=== PATIENT | female | born 1940 | race African-American/Black ===

== ENCOUNTER 2018-04-23 20:57 | Inpatient (IN) | payer MEDICARE, MEDICAID ==
[2018-04-23] MEDS ORDERED: hydrALAZINE 20 MG/ML VIAL ONE (21:32)
--- NOTE | 2018-04-23 21:49 | RAD ---
SINGLE VIEW OF THE CHEST: Comparison: 11-04-17 History: Weakness and fever. FINDINGS: Single view of the chest shows an enlarged but stable cardiomediastinal silhouette. This exam is slig htly rotated and there is upper mediastinal fullness, likely secondary to the rotation. There is a ch ronic unhealed fracture of the left humerus. Degenerative changes are seen in the spine and shoulders . There is no evidence of consolidation, mass, or pleural effusion. IMPRESSION: No evidence of acute cardiopulmonary disease. POS: [facility]
[2018-04-23 21:59] LABS: Bilirubin Negative (Negative); Blood, Urine Negative (Negative); Clarity CLOUDY (Clear); Glucose, Urine (Dipstick) Negative (Negative); Leukocyte Trace (Negative); Nitrite Negative (Negative); Protein, Urine (Dipstick) 300 mg/dL (Neg-Trace); Specific Gravity, Urine 1.011 (1.002-1.036); Urobilinogen 0.2 mg/dL (0.2-1.0)
[2018-04-23 22:01] LABS: Bacteria/HPF None Seen HPF (None Seen); Hyaline Casts/LPF 7-10 HYALINE CAST LPF (0-3 Hyaline); Pathc Cast-AUWi Flag 2.03 (0-2.49); RBC/HPF 0-3 HPF (0-3)
--- NOTE | 2018-04-23 22:10 | ULT ---
GALLBLADDER ULTRASOUND: History: Epigastric abdominal pain and fever. Technique: Multiplanar grayscale and color doppler images were obtained in a right upper quadrant abd ominal ultrasound. FINDINGS: The liver is normal in echogenicity without focal lesions or intrahepatic ductal dilation. The gallbl adder is normal without stones, sludge, gallbladder wall thickening or pericholecystic fluid. The com mon bile duct is enlarged measuring 8 mm. The visualized portions of the pancreas are unremarkable. The right kidney demonstrates increased ech ogenicity without hydronephrosis or calculus and measures 9.3 cm in length. IMPRESSION: 1. Enlargement of the common bile duct is nonspecific. No obvious gallstones are seen. 2. Echogenic kidney, chronic renal disease. POS: [facility]
[2018-04-23 23:01] LABS: Lipase 20 U/L (8-78)
[2018-04-23 23:02] LABS: CK (CPK) 58 U/L (29-168)
[2018-04-23 23:07] LABS: CKMB 1.4 ng/mL (0-6.6); Troponin I Less than 0.010 ng/mL (< 0.028)
[2018-04-23] MEDS ORDERED: cefTRIAXone\\ROCEPHIN 2 GM VIAL ONE (23:27)
[2018-04-23] MEDS ORDERED: Acetaminophen 325 MG TAB ONE (23:40)
[2018-04-24] MEDS ORDERED: Sodium Chloride 0.9% 1,000 ML IV SCH (00:51)
[2018-04-24] MEDS ORDERED: Ondansetron ODT 4 MG TAB SL PRN (00:51)
[2018-04-24] MEDS ORDERED: Acetaminophen 325 MG TAB PO PRN (00:51)
[2018-04-24] MEDS ORDERED: Ondansetron HCl/PF 4 MG/2 ML Vial IVP PRN (00:51)
[2018-04-24 01:01] VITALS: BMI 18.6
[2018-04-24] MEDS: Sodium Chloride 0.45% 1,000 ML IV SCH ×2 (02:01→16:49)
[2018-04-24] MEDS ORDERED: Colchicine 0.6 MG TAB PO PRN (02:22)
--- NOTE | 2018-04-24 02:46 | HP ---
CODE STATUS: FULL CODE. PRIMARY CARE PHYSICIAN: The patient goes to [facility]. TIME OF EVALUATION: 12:00 a.m. CHIEF COMPLAINT: Generalized weakness, nausea, vomiting. HISTORY OF PRESENT ILLNESS: 77 y/o f pt, hx of htn, gout, came to hospital complaining of nausea, vomiting and diarrhea, The patient reported that the symptoms started today, also associated fever, no clear triggers, no alleviating factors. She was transferred from [place] for that reason.symptoms were reported as moderate to severe. REVIEW OF SYSTEMS: Constitutional: The patient had fever, chills, generalized weakness. Respiratory: No cough, no sputum production or shortness of breath. Cardiovascular: No chest pain, palpitation or shortness of breath. Gastrointestinal: The patient has abdominal pain, nausea, vomiting, and diarrhea. Central nervous system: No dizziness, headache or feeling lightheaded. Genitourinary: No burning on urination. Extremities: No leg swelling. She has chronic, old left humeral fracture. All systems were reviewed and negative except for the findings mentioned above. PAST MEDICAL HISTORY: gout, hypertension. PAST SURGICAL HISTORY: Hysterectomy. PSYCHIATRIC HISTORY: Anxiety. SOCIAL HISTORY: No alcohol, no drugs, no smoking history. FAMILY HISTORY: Father with no problems. Mother with heart problems. KNOWN ALLERGIES: CODEINE, IBUPROFEN, and PENICILLIN. REPORTED MEDICATIONS: Hydrochlorothiazide, lisinopril, amitriptyline, K-Dur, diclofenac, fluticasone, colchicine, omeprazole. PHYSICAL EXAMINATION: VITAL SIGNS: On presentation, blood pressure 205/95 with heart rate of 108, respiratory rate was 25, temperature 100.7, pain 4/10, saturation was 95 on room air. GENERAL APPEARANCE: The patient is alert, oriented, no acute distress. HEENT: Eyes: Normal conjunctivae. Moist oral mucosa. Anicteric. NECK: No JVD. RESPIRATORY: Bilateral air entry. No rales, no wheezing. Symmetric expansion. CARDIOVASCULAR: Normal rate, regular rhythm, no murmurs, no gallop. No edema. ABDOMEN: Soft, tender, normal bowel sounds. MUSCULOSKELETAL: Baseline range of motion and strength. No tenderness. SKIN: Warm and intact. No pallor, no rash, no redness. NEUROLOGIC: Baseline sensory. No evidence of any new focal weakness. Baseline speech. Cranial nerves seem to intact. PSYCHIATRIC: The patient is in a good mood. No anxiety, oriented, optimal judgment. LABORATORY DATA: Reviewed. The patient had a white count 9.6, hemoglobin 10.3 , MCV 87, platelet count 170. Chemistry: Serum potassium 3.8, sodium 143, potassium 4.3, chloride 116, carbon dioxide was 15 with normal anion gap, BUN 26 , GFR greater than 90, creatinine 1.34, the same value from previous admissions and previous records. Glucose 129. LFTs were normal. UA was reviewed, is positive with a white count in urine 4-6. The patient has sinus tachycardia at the rate of 107. ST segment and T waves, no abnormalities. Early repolarization with left ventricular hypertrophy based on diagnosis for any acute pathology. Radiology was reviewed and patient had a chest x-ray showing no evidence of acute cardiopulmonary disease. An abdominal ultrasound showing enlargement of the common bile duct. There is no specific obvious gallstones are seen, echogenic kidney, chronic renal disease. ASSESSMENT AND PLAN: The patient will be placed in the hospital for the following medical problems: 1. Possible acute gastroenteritis, patient had abdominal pain, nausea, vomiting , and diarrhea, also associated with non anion gap metabolic acidosis likely from bicarbonate loss from diarrhea. We will place the patient on antibiotics, we will follow stool cultures, CAT scan is pending. We will monitor, we will follow. 2. Non anion gap metabolic acidosis likely secondary to acute bicarbonate loss from diarrhea. We will treat the underlying condition. 3. Urinary tract infection, UA is positive, we will place the patient on antibiotics. Monitor cultures. Adjust treatment as needed. 4. Hypertensive urgency, no acute symptoms on presentation, reconcile home medications, IV p.r.n. medications for optimal control. 5. Deep venous thrombosis prophylaxis. 6. Hyperglycemia on presentation, will be related to acute distress. 7. History of diabetes, we will monitor, we will treat accordingly. [facility]
[2018-04-24 05:00] LABS: #Lymphocytes 0.4 thou/uL (1.20-3.40); #Monocytes 0.3 thou/uL (0.11-0.59); #Neutrophils 6.5 thou/uL (1.40-6.50); %Basophils 0.1 % (0.0-1.0); %Eosinophils 0.3 % (0.0-10.0); %Lymphocytes 4.9 % (21.0-51.0); %Monocytes 3.7 % (0.0-10.0); %Neutrophils 91.1 % (42.0-75.0); Hemoglobin 9.6 g/dL (12.0-16.0); Mean Corpuscular Hemoglobin 29.5 pg (27.0-31.0); Mean Corpuscular Volume 86.9 fL (78.0-98.0); Mean Platelet Volume 6.7 fL (7.4-10.4); Platelet Count 159 thou/uL (130-400); RBC Distribution Width 12.8 % (11.5-14.5); Red Blood Cell (RBC) Count 3.25 mill/uL (4.20-5.40); White Blood Cell (WBC) Count 7.1 thou/uL (4.8-10.8)
[2018-04-24 05:37] LABS: Anion Gap 15 mmol/L (10-20); BUN (Urea Nitrogen) 24 mg/dL (9.8-20.1); Calc. Creatinine Clearance 27 mL/min (70-130); Calcium 8.9 mg/dL (7.8-10.44); Carbon Dioxide 15 mmol/L (23-31); Chloride 114 mmol/L (98-107); Estimated GFR-MDRD 50; Glucose 110 mg/dL (83-110); Potassium 3.8 mmol/L (3.5-5.1); Sodium 140 mmol/L (136-145)
[2018-04-24] MEDS: metroNIDAZOLE 500 MG in Premix Bag 1 BAG IVPB SCH ×3 (06:34→21:13)
[2018-04-24] MEDS: Mometasone 100 MCG HFA INHALER INH SCH ×2 (06:43→19:19)
[2018-04-24] MEDS: Potassium Chloride 20 MEQ TAB PO SCH (08:28)
[2018-04-24] MEDS: Hydrochlorothiazide 25 MG TAB PO SCH ×2 (08:29→21:43)
[2018-04-24] MEDS: Amitriptyline HCl 25 MG TAB PO SCH ×2 (08:29→21:45)
[2018-04-24] MEDS: Enoxaparin Sodium 30 MG/0.3 ML SYRINGE SC SCH (08:30)
[2018-04-24] MEDS: Lisinopril 20 MG TAB PO SCH (08:30)
--- NOTE | 2018-04-24 09:15 | CT ---
PRELIMINARY REPORT/[facility]/EMERGENTY AFTER-HOURS PROCEDURE CT Abdomen and Pelvis Without Intravenous Contrast CLINICAL HISTORY: 77 years old, female; Pain; Abdominal pain; Generalized TECHNIQUE: Axial computed tomography images of the abdomen and pelvis without intravenous contrast. Coronal reformatted images were created and reviewed. COMPARISON: No relevant prior studies available. FINDINGS: Lung bases: There is respiratory motion artifact of the lung bases. Mediastinum: A moderate hiatal hernia is present. ABDOMEN: Liver: The liver is within normal limits for this noncontrast study. Gallbladder and bile ducts: The gallbladder is normal. There is no evidence of biliary ductal dilatio n. No calcified stones. Pancreas: The pancreas appears normal. No ductal dilation. Spleen: The spleen is normal. Adrenals: The adrenal glands are normal. Kidneys and ureters: The kidneys appear normal. No obstructing stones. No hydronephrosis. Stomach and bowel: Visualized colon is unremarkable on these unenhanced views. No obstruction. No muc osal thickening. PELVIS: Appendix: The appendix is not definitively identified. Bladder: The bladder is mildly distended. No stones. Reproductive: There is a 2.5 cm LEFT adnexal cyst incompletely evaluated with CT. Uterus may be surgi rosana absent. ABDOMEN and PELVIS: Intraperitoneal space: Normal. No free air. No significant fluid collection. Bones/joints: The spine demonstrates moderate degenerative changes at multiple levels. No acute fract ure. No dislocation. Soft tissues: Normal. Vasculature: The vasculature demonstrates diffuse mild atherosclerotic calcification. No abdominal ao rtic aneurysm. Lymph nodes: Normal. No enlarged lymph nodes. IMPRESSION: 1. No acute abdominal pelvic pathology. 2. A moderate hiatal hernia is present. 3. There is a 2.5 cm LEFT adnexal cyst incompletely evaluated with CT. Thank you for allowing us to participate in the care of your patient. Dictated and Authenticated by: Jorge Wilder MD 04/24/2018 4:17 AM Central Time ([place] & [place]) FINAL REPORT CT ABDOMEN AND PELVIS NONCONTRAST PERFORMED ON AN EMERGENCY BASIS: Date: 04/24/18 Time: 0247 hours HISTORY: Flank pain. FINDINGS: Findings agree with the preliminary report by Alecia. No CT evidence of urinary tract calcification. Ur inary bladder distention and diverticula suggest possibility of chronic urinary bladder outlet obstru ction. POS: [facility]
[2018-04-24] MEDS: hydrALAZINE 20 MG/ML VIAL SLOW IVP PRN ×3 (13:47→21:07)
[2018-04-24] MEDS ORDERED: cefTRIAXone\\ROCEPHIN 1 GM in Sodium Chloride 0.9% 100 ML IVPB SCH (23:00)
[2018-04-24] MEDS ORDERED: cefTRIAXone\\ROCEPHIN 1 GM, Admixture Fee 1 EACH in Sodium Chloride 0.9% 100 ML IVPB SCH (23:00)
[2018-04-25] MEDS: Sodium Chloride 0.45% 1,000 ML IV SCH (05:21)
[2018-04-25] MEDS: metroNIDAZOLE 500 MG in Premix Bag 1 BAG IVPB SCH (05:31)
[2018-04-25] MEDS: Mometasone 100 MCG HFA INHALER INH SCH ×2 (06:56→19:19)
[2018-04-25 07:53] LABS: #Lymphocytes 0.6 thou/uL (1.20-3.40); #Monocytes 0.3 thou/uL (0.11-0.59); #Neutrophils 4.3 thou/uL (1.40-6.50); %Eosinophils 0.4 % (0.0-10.0); %Lymphocytes 11.5 % (21.0-51.0); %Monocytes 6.4 % (0.0-10.0); %Neutrophils 81.6 % (42.0-75.0); Hemoglobin 9.8 g/dL (12.0-16.0); Mean Corpuscular HGB CONC 33.9 g/dL (32.0-36.0); Mean Corpuscular Hemoglobin 29.9 pg (27.0-31.0); Mean Platelet Volume 7.1 fL (7.4-10.4); Platelet Count 158 thou/uL (130-400); RBC Distribution Width 12.7 % (11.5-14.5); White Blood Cell (WBC) Count 5.2 thou/uL (4.8-10.8)
[2018-04-25 08:08] LABS: Anion Gap 15 mmol/L (10-20); BUN (Urea Nitrogen) 19 mg/dL (9.8-20.1); Calc. Creatinine Clearance 28 mL/min (70-130); Calcium 8.9 mg/dL (7.8-10.44); Carbon Dioxide 15 mmol/L (23-31); Chloride 112 mmol/L (98-107); Estimated GFR-MDRD 49; Glucose 100 mg/dL (83-110); Magnesium 1.5 mg/dL (1.6-2.6); Potassium 3.5 mmol/L (3.5-5.1); Sodium 138 mmol/L (136-145)
[2018-04-25] MEDS: Potassium Chloride 20 MEQ TAB PO SCH (08:30)
[2018-04-25] MEDS: Amitriptyline HCl 25 MG TAB PO SCH (08:30)
[2018-04-25] MEDS: Hydrochlorothiazide 25 MG TAB PO SCH (08:31)
[2018-04-25] MEDS: Enoxaparin Sodium 30 MG/0.3 ML SYRINGE SC SCH (08:31)
[2018-04-25] MEDS: Lisinopril 20 MG TAB PO SCH (08:31)
[2018-04-25] MEDS ORDERED: Magnesium 2 GM/NS 0.9% 100 ML 2 GM in Premix Bag 1 BAG IVPB SCH (09:15)
[2018-04-25] MEDS ORDERED: Magnesium Sulfate 2 GM, Admixture Fee 1 EACH in Sodium Chloride 0.9% 100 ML IVPB SCH (09:30)
[2018-04-25 15:15] VITALS: TEMP 97.8
[2018-04-25 15:40] VITALS: BP 170/77
== END 2018-04-25 20:28 | disposition home or self-care (01) | DRG 690 ==
LOC: ERS 20:57 → 2NO 23:22
PROVIDERS: ADMIT Hospitalist; ATTEND Hospitalist
DX: N39.0 Urinary tract infection, site not specified (principal); E87.2 Acidosis; K52.9 Noninfective gastroenteritis and colitis, unspecified; I10 Essential (primary) hypertension; M10.9 Gout, unspecified; F41.9 Anxiety disorder, unspecified; R19.7 Diarrhea, unspecified; I16.0 Hypertensive urgency; E11.65 Type 2 diabetes mellitus with hyperglycemia; Z88.0 Allergy status to penicillin
CPT/HCPCS: 36415; 51701; 71045; 74176; 76705; 80048; 82553; 83605; 83690; 83735; 84484; 85025; 87086; 93005; 96365; 96375; A4353; G8978-GP-CI; G8979-GP-CI; G8980-GP-CI; G8987-GO-CI; G8988-GO-CI; G8989-GO-CI; J0360; J0696; J1650; J3475; J7050

== ENCOUNTER 2018-07-14 22:35 | Inpatient (IN) | payer MEDICARE, MEDICAID ==
[2018-07-15 01:40] VITALS: BMI 19.4
[2018-07-15] MEDS ORDERED: Morphine 2 MG/ML SYRINGE SLOW IVP PRN (02:06)
[2018-07-15] MEDS: Acetaminophen 325 MG TAB PO PRN ×2 (04:00→13:50)
[2018-07-15] MEDS ORDERED: Ondansetron ODT 4 MG TAB PO PRN (08:15)
[2018-07-15] MEDS ORDERED: Ondansetron HCl/PF 4 MG/2 ML Vial IVP PRN (08:15)
[2018-07-15] MEDS ORDERED: Milk Of Magnesia 30 ML UDCUP PO PRN (08:15)
[2018-07-15] MEDS ORDERED: Calcium Carbonate 500 MG ChewTAB PO PRN (08:15)
[2018-07-15] MEDS ORDERED: Mag-Al 1200 mg/1200 mg/30 ML UDCUP PO PRN (08:15)
[2018-07-15] MEDS ORDERED: Senokot 8.6 MG TAB PO PRN (08:15)
[2018-07-15] MEDS ORDERED: ALPRAZolam 0.25 MG TAB PO PRN (08:18)
[2018-07-15] MEDS ORDERED: hydrALAZINE 20 MG/ML VIAL SLOW IVP PRN (08:18)
--- NOTE | 2018-07-15 08:35 | HP ---
PRIMARY CARE PHYSICIAN: Kaylee Rodrigues M.D. CHIEF COMPLAINT: Fever and chills of 2 days' duration. HISTORY OF PRESENT ILLNESS: The patient is a 78-year-old -[place] female with hypertension and gout, presented to the emergency room with fever along with chills of 2 days' duration. Her last hospitalization at this facility was 2 months ago for acute gastroenteritis. A CT scan of the abdomen and pelvis, at that time, was negative for acute abdominal or pelvic pathology. She did well post-discharge. The patient presented to the [facility] Emergency Room with fever and chills along with generalized weakness of 2 days' duration. She has not been able to get out of the bed for the last 2 days due to generalized weakness. She felt feverish; however, did not record her temperature. She also had some pain with urination. No cough, shortness of breath, wheezing, skin rash, altered mentation, diarrhea, nausea reported. She denies any recent changes in her medications. No recent flu shot. She denies any recent travel, chest pain , shortness of breath, palpitations, or syncope. In the emergency room, initial vital signs showed temperature 101.5, respirations 20, pulse rate of 101, blood pressure of 215/96 with O2 saturation 93% on room air. Her pain level was 7-8, and was generalized. She received Levaquin, amlodipine, fentanyl, hydralazine, Tylenol, and IV fluids in the emergency room. She was transferred to this facility for hospital admission. PAST MEDICAL HISTORY: 1. Hypertension. 2. Gout. 3. Gastroesophageal reflux disease. 4. Chronic anemia. 5. Anxiety. 6. Hiatal hernia. PAST SURGICAL HISTORY: Hysterectomy. ALLERGIES: The patient is allergic to CODEINE, IBUPROFEN, and PENICILLIN. CURRENT HOME MEDICATIONS: Amitriptyline 25 mg b.i.d., colchicine as needed, hydrochlorothiazide 25 mg b.i.d., omeprazole 40 mg b.i.d., potassium chloride 20 mEq daily. SOCIAL HISTORY: Patient currently lives at home with her son. She ambulates with the help her cane. No smoking, alcohol, or drug use reported. She makes her own decision with the help of her son. She is FULL CODE. FAMILY HISTORY: Mother with heart problems. REVIEW OF SYSTEMS: The following complete review of systems was negative, unless otherwise mentioned in the HPI or below: Constitutional: Weight loss or gain, ability to conduct usual activities. Skin: Rash, itching. Eyes: Double vision, pain. ENT/Mouth: Nose bleeding, neck stiffness, pain, tenderness. Cardiovascular: Palpitations, dyspnea on exertion, orthopnea. Respiratory: Shortness of breath, wheezing, cough, hemoptysis, fever, or night sweats. Gastrointestinal: Poor appetite, abdominal pain, heartburn, nausea, vomiting, constipation, or diarrhea. Genitourinary: Urgency, frequency, dysuria, nocturia. Musculoskeletal: Pain, swelling. Neurologic/Psychiatric: Anxiety, depression. Allergy/Immunologic: Skin rash, bleeding tendency. PHYSICAL EXAMINATION: VITAL SIGNS: As discussed above. GENERAL: This is a 78-year-old female in no apparent distress, appears comfortable. HEENT: Head, atraumatic and normocephalic. Sclerae are anicteric. Moist mucous membrane, no oral lesion. NECK: Supple, no JVD, no carotid bruit. LUNGS: Clear to auscultation bilaterally with diminished air entry at bases. HEART: S1 and S2 present. Regular rate and rhythm. No heaves or pulsations. ABDOMEN: Soft, nontender, bowel sounds present. No significant suprapubic tenderness, no flank tenderness. EXTREMITIES: No edema or calf tenderness. NEUROLOGIC: Grossly nonfocal, moves all 4 extremities. PSYCHIATRY: Alert, awake, oriented x3. SKIN: Warm and dry. LYMPH NODES: No palpable lymph nodes in the neck. PERIPHERAL VASCULAR: Radial pulses palpable bilaterally. MUSCULOSKELETAL: No joint swelling or tenderness. LABORATORY FINDINGS: CBC showed WBC 14.3 with hemoglobin 10.5, hematocrit 31.6 , platelet of 165. Chemistries showed sodium 141, potassium 3.5, chloride 108, bicarbonate 19, BUN 24, creatinine 1.43. LFTs in normal range. Lactic acid 1.6. Chest x-ray, by my review, was negative for infiltrate. There was probably mild pulmonary vascular congestion. CT scan of the chest showed a xfnrkuyp-me-yhszo hiatal hernia without any acute findings. There was no pulmonary edema or consolidation. Lactic acid was 1.6. IMPRESSION: 1. Generalized weakness /Sepsis secondary to urinary tract infection. 2. Hypertension with hypertensive urgency. 3. Chronic kidney disease, stage 3. 4. Gastroesophageal reflux disease. 5. Yihitkbg-gr-yppaq hiatal hernia. 6. Gout. 7. PENICILLIN allergy. PLAN: The patient will be monitored on the medical floor. Blood culture, urine cultures have been sent. We will continue Levaquin. I am unable to find any other source of sepsis. We will continue to monitor. Physical therapy and occupational therapy will be consulted. We will resume all of her home medications including antihypertensives. The patient will require 2-3 days for stabilization. [facility]
[2018-07-15] MEDS ORDERED: Colchicine 0.6 MG TAB PO PRN (08:45)
[2018-07-15] MEDS: Amlodipine 5 MG TAB PO SCH ×2 (09:01→20:54)
[2018-07-15] MEDS: Sodium Chloride 0.9% 1,000 ML IV SCH (09:01)
[2018-07-15] MEDS: Amitriptyline HCl 25 MG TAB PO SCH ×2 (09:01→20:54)
[2018-07-15] MEDS: Docusate 100 MG CAP PO SCH ×2 (09:01→20:54)
[2018-07-15] MEDS: cloNIDine 0.1 MG TAB PO PRN (20:53)
[2018-07-16] MEDS: Sodium Chloride 0.9% 1,000 ML IV SCH ×3 (05:32→20:15)
[2018-07-16 05:41] LABS: #Lymphocytes 0.6 thou/uL (1.20-3.40); #Monocytes 0.7 thou/uL (0.11-0.59); #Neutrophils 8.2 thou/uL (1.40-6.50); %Basophils 0.2 % (0.0-1.0); %Eosinophils 0.4 % (0.0-10.0); %Lymphocytes 6.7 % (21.0-51.0); %Monocytes 7.2 % (0.0-10.0); %Neutrophils 85.7 % (42.0-75.0); Hemoglobin 9.8 g/dL (12.0-16.0); Mean Corpuscular HGB CONC 32.4 g/dL (32.0-36.0); Mean Corpuscular Hemoglobin 28.2 pg (27.0-31.0); Mean Corpuscular Volume 87.2 fL (78.0-98.0); Mean Platelet Volume 8.5 fL (7.4-10.4); Platelet Count 151 thou/uL (130-400); Red Blood Cell (RBC) Count 3.48 mill/uL (4.20-5.40); White Blood Cell (WBC) Count 9.6 thou/uL (4.8-10.8)
[2018-07-16 06:11] LABS: ALT (SGPT) Less than 7 U/L (8-55); AST (SGOT) 11 U/L (5-34); Albumin 3.3 g/dL (3.4-4.8); Alkaline Phosphatase 67 U/L (40-150); Anion Gap 16 mmol/L (10-20); BUN (Urea Nitrogen) 24 mg/dL (9.8-20.1); Bilirubin, Total 0.3 mg/dL (0.2-1.2); Calc. Creatinine Clearance 26 mL/min (70-130); Calcium 9.5 mg/dL (7.8-10.44); Carbon Dioxide 18 mmol/L (23-31); Chloride 111 mmol/L (98-107); Estimated GFR-MDRD 49; Globulin 3.5 g/dL (2.4-3.5); Glucose 87 mg/dL (83-110); Potassium 3.6 mmol/L (3.5-5.1); Protein, Total 6.8 g/dL (6.0-8.3); Sodium 141 mmol/L (136-145)
[2018-07-16] MEDS: Acetaminophen 325 MG TAB PO PRN ×3 (07:12→18:41)
[2018-07-16] MEDS: Docusate 100 MG CAP PO SCH ×2 (08:14→20:07)
[2018-07-16] MEDS: Amitriptyline HCl 25 MG TAB PO SCH ×2 (08:15→20:07)
[2018-07-16] MEDS: Amlodipine 5 MG TAB PO SCH ×2 (08:15→20:07)
[2018-07-16] MEDS ORDERED: Vancomycin HCl 1 GM in Premix Bag 1 BAG IVPB SCH (11:00)
[2018-07-16] MEDS ORDERED: Vancomycin HCl 750 MG in Sodium Chloride 0.9% 250 ML 250 ML IVPB SCH (11:30)
--- NOTE | 2018-07-16 12:03 | PDOC.PN ---
- Subjective Encounter Start Date: 07/16/18 Encounter Start Time: 11:00 Patient seen and examined for Sepsis. Feels better. No CP/SOB/Cough/dysuria/ diarrhea/N/V. No new complaints. No overnight events - Objective Resuscitation Status: Resuscitation Status FULL:Full Resuscitation MAR Reviewed: Yes Vital Signs & Weight: Vital Signs (12 hours) Temp Pulse Resp BP Pulse Ox 07/16/18 08:15 112 H 07/16/18 08:00 95 07/16/18 07:53 99.3 F 112 H 20 154/78 H 95 07/16/18 04:00 98.5 F 92 16 168/62 H 92 L Weight Weight 99 lb 6.856 oz I&O: 07/15/18 07/16/18 07/17/18 06:59 06:59 06:59 Intake Total 300 750 Balance 300 750 Result Diagrams: 07/16/18 04:56 07/16/18 04:56 Radiology Reviewed by me: Yes (CXR - Neg) Phys Exam - Physical Examination Constitutional: NAD HEENT: moist MMs Neck: no JVD Respiratory: no wheezing, no rales, no rhonchi, clear to auscultation bilateral Cardiovascular: no rub S1S2 +, tachycardic, no heaves Gastrointestinal: soft, non-tender, no distention, positive bowel sounds Musculoskeletal: no edema Neurological: non-focal, normal sensation, moves all 4 limbs Psychiatric: A&O x 3 Dx/Plan - Plan DVT proph w/SCDs IMPRESSION: 1. Generalized weakness /Sepsis secondary to urinary tract infection. 2. Hypertension with hypertensive urgency. improving 3. Chronic kidney disease, stage 3. 4. Gastroesophageal reflux disease. on PPI 5. Hypomagnesemia 6. Gout. 7. PENICILLIN allergy/Qsuxfkzr-qd-gywpi hiatal hernia. PLAN: Add Vancomycin with repeat blood culture due to new onset tachycardia with fever Cont Levaquin Consult ID Increase IV NS to 100 ml/hr Cont current meds as below Ambulate Urine culture pending Replace Magnessium Microbiology 07/14/18 19:00 Venous blood - Right Hand Blood Culture - Preliminary Specimen has been received and culture in progress. No Growth to date. 07/14/18 18:55 Venous blood - Right Arm Blood Culture - Preliminary Specimen has been received and culture in progress. No Growth to date. Laboratory Tests 07/16/18 11:30 Magnesium 1.4 L Review of Systems - Review of Systems Respiratory: negative: Cough, Dry, Shortness of Breath, Hemoptysis, SOB with Excertion, Pleuritic Pain, Sputum, Wheezing Cardiovascular: negative: chest pain, palpitations, orthopnea, paroxysmal nocturnal dyspnea, edema, light headedness, other - Medications/Allergies Allergies/Adverse Reactions: Allergies Allergy/AdvReac Type Severity Reaction Status Date / Time codeine Allergy Verified 04/24/18 01:44 ibuprofen Allergy Verified 04/24/18 01:44 Penicillins Allergy Verified 04/24/18 01:44 Medications: Current Medications Acetaminophen (Tylenol) 650 mg PO Q6H PRN PRN Reason: Headache/Fever or Pain Last Admin: 07/16/18 07:12 Dose: 650 mg Al Hydroxide/Mg Hydroxide (Maalox) 30 ml PO Q6H PRN PRN Reason: Heartburn or Indigestion Alprazolam (Xanax) 0.25 mg PO BIDPRN PRN PRN Reason: Anxiety Amitriptyline HCl (Elavil) 25 mg PO BID [facility] Last Admin: 07/16/18 08:15 Dose: 25 mg Amlodipine Besylate (Norvasc) 5 mg PO BID [facility] Last Admin: 07/16/18 08:15 Dose: 5 mg Calcium Carbonate (Tums) 1,000 mg PO Q4H PRN PRN Reason: Heartburn or Indigestion Clonidine (Catapres) 0.1 mg PO Q4H PRN PRN Reason: Systolic BP > 180 Last Admin: 07/15/18 20:53 Dose: 0.1 mg Colchicine (Colcrys) 0.6 mg PO DAILYPRN PRN PRN Reason: Pain Docusate Sodium (Colace) 100 mg PO BID [facility] Last Admin: 07/16/18 08:14 Dose: 100 mg Fentanyl (Sublimaze) 25 mcg SLOW IVP Q6H PRN PRN Reason: Severe Pain (7-10) Hydralazine HCl (Apresoline) 10 mg SLOW IVP Q4H PRN PRN Reason: SBP Greater Than 180 Levofloxacin 500 mg/ Device 100 mls @ 100 mls/hr IVPB Q24HR [facility] Last Admin: 07/16/18 08:15 Dose: 100 mls Sodium Chloride (Normal Saline 0.9%) 1,000 mls @ 100 mls/hr IV .Q10H [facility] Last Admin: 07/16/18 12:00 Dose: 1,000 mls Vancomycin HCl 750 mg/ Sodium (Chloride) 250 mls @ 250 mls/hr IVPB NOW [facility] Stop: 07/16/18 13:30 Last Admin: 07/16/18 11:59 Dose: 250 mls Magnesium Hydroxide (Milk Of Magnesium) 30 ml PO DAILYPRN PRN PRN Reason: Constipation Miscellaneous Medication (Pharmacy To Dose) 1 each IVPB PRN PRN PRN Reason: Pharmacy to dose Ondansetron HCl (Zofran Odt) 4 mg PO Q6H PRN PRN Reason: Nausea/Vomiting Ondansetron HCl (Zofran) 4 mg IVP Q6H PRN PRN Reason: Nausea/Vomiting Pantoprazole Sodium (Protonix) 40 mg PO BID [facility] Last Admin: 07/16/18 08:14 Dose: 40 mg Senna (Senokot) 2 tab PO HSPRN PRN PRN Reason: Constipation Sodium Chloride (Flush - Normal Saline) 10 ml IVF Q12HR [facility] Last Admin: 07/16/18 08:15 Dose: Not Given Sodium Chloride (Flush - Normal Saline) 10 ml IVF PRN PRN PRN Reason: Saline Flush
[2018-07-16] MEDS ORDERED: Magnesium Sulfate 4 GM in Sodium Chloride 0.9% 250 ML 250 ML IVPB SCH (12:30)
--- NOTE | 2018-07-16 20:18 | CON ---
DATE OF CONSULTATION: 07/16/2018 REASON FOR CONSULTATION: Fever. HISTORY OF PRESENT ILLNESS: A 78-year-old patient who has a history of hypertension, gout, and chron ic anemia presented with new onset of fever, chills, general malaise, myalgias, and arthralgias. No headaches. Had some dysuria. No cough, dyspnea, or chest pain. No skin rash. No abdominal pain or diarrhea. Initial evaluation showed temperature 101.5, respiratory rate 20, pulse 101, blood pressu re 215/96, O2 sat 93%. PAST MEDICAL HISTORY: Hypertension, gout, GERD, anemia, anxiety, hiatal hernia. PAST SURGICAL HISTORY: Hysterectomy. ALLERGIES: CODEINE, IBUPROFEN, PENICILLIN with rash. CURRENT MEDICATIONS: Tylenol, Maalox, Xanax, Elavil, Norvasc, Tums, Catapres, Colcrys, Colace, Subli maze, levofloxacin, magnesium, Zofran, Senokot. SOCIAL HISTORY: Lives with son in the area. Never a smoker. FAMILY HISTORY: Noncontributory. PHYSICAL EXAMINATION: VITAL SIGNS: T-max 99.1 after admission, blood pressure 150/78, pulse 112, respirations 20, O2 sat 9 5%. SKIN: Without any areas of skin breakdown. Peripheral IV access. GENERAL: Oriented, alert, follows commands. Uncomfortable at rest because of joint pains. HEENT: Ocular movements conjugate. Oral cavity with no [place] teeth remaining in place. NECK: Supple. No lymphadenopathy. LUNGS: Symmetric air entry without crackles or wheezing. HEART: S1, S2 regular rate with a soft aortic murmur. ABDOMEN: Soft. Not distended or tender. EXTREMITIES: Marked limitation of movement in upper and lower extremities. She has shortened extrem ities. She apparently fractured her left upper extremity and has a deformity in the humerus, which i s chronic. She is able to extend her right upper extremity, but not the left, which she keeps in fle xure all the time. Marked tenderness on palpation of the knees, particularly on the right side, but also the left and she does not allow me to flex her knees because of pain. She has pain in the ankle s as well. Some pain in the elbows and shoulders. Plantar responses are flexor. Pulses are 1+ in d orsalis pedis. No edema. NEUROLOGIC: Oriented, follows commands, pleasant. LABORATORY DATA: White cell count 9.6, hemoglobin 9.8, MCV 87, platelets 151 with 85% neutrophils. Sodium 141; creatinine 1.28, which is a bit higher than her baseline since 2016. Last uric acid is f rom 12/03/2017, which was 5.9. Reports include a chest CT from this admission with no tumor and she has a tortuosity of ascending aorta, mildly dilated SVC, large hiatal hernia, osteoarthrosis of bilat eral glenohumeral joints. She had an abdominal ultrasound and pelvic CT from April of this year, whic h is not particularly remarkable. Her last urinalysis is from 07/14/2018 with 0-3 wbc's, protein gre ater than 300. ASSESSMENT: 1. Polyarticular gout. 2. Fever. 3. Arthralgias. 4. Hypoxemia. DISCUSSION: Differential diagnosis includes polyarticular gout, poorly controlled, versus bacteremia versus superimposed infection in one of the joints. The management would include attempted arthroce ntesis, may be in one of the knees, to submit for crystal analysis and cultures. Check uric acid lev el. Continue Colcrys. If the cultures remain negative, then discontinue antimicrobial therapy and c ontinue anti-inflammatories for a presumable attack of polyarticular gout. Pseudogout also would be within the differential diagnosis.
[2018-07-17] MEDS: Acetaminophen 325 MG TAB PO PRN ×3 (00:22→17:28)
[2018-07-17] MEDS: cloNIDine 0.1 MG TAB PO PRN (00:22)
[2018-07-17 05:11] LABS: #Lymphocytes 0.5 thou/uL (1.20-3.40); #Monocytes 0.7 thou/uL (0.11-0.59); #Neutrophils 7.6 thou/uL (1.40-6.50); %Basophils 0.2 % (0.0-1.0); %Eosinophils 0.1 % (0.0-10.0); %Lymphocytes 6.1 % (21.0-51.0); %Monocytes 7.4 % (0.0-10.0); %Neutrophils 86.3 % (42.0-75.0); Hemoglobin 8.9 g/dL (12.0-16.0); Mean Corpuscular Hemoglobin 27.8 pg (27.0-31.0); Mean Platelet Volume 8.5 fL (7.4-10.4); Platelet Count 171 thou/uL (130-400); RBC Distribution Width 13.8 % (11.5-14.5); White Blood Cell (WBC) Count 8.9 thou/uL (4.8-10.8)
[2018-07-17 05:26] LABS: ALT (SGPT) Less than 7 U/L (8-55); AST (SGOT) 9 U/L (5-34); Alkaline Phosphatase 63 U/L (40-150); Anion Gap 12 mmol/L (10-20); BUN (Urea Nitrogen) 21 mg/dL (9.8-20.1); Bilirubin, Total 0.3 mg/dL (0.2-1.2); Calc. Creatinine Clearance 26 mL/min (70-130); Calcium 9.1 mg/dL (7.8-10.44); Carbon Dioxide 19 mmol/L (23-31); Chloride 113 mmol/L (98-107); Estimated GFR-MDRD 50; Globulin 3.4 g/dL (2.4-3.5); Glucose 123 mg/dL (83-110); Magnesium 2.5 mg/dL (1.6-2.6); Potassium 3.5 mmol/L (3.5-5.1); Protein, Total 6.4 g/dL (6.0-8.3); Sodium 140 mmol/L (136-145)
[2018-07-17] MEDS: Colchicine 0.6 MG TAB PO SCH ×2 (08:49→20:18)
[2018-07-17] MEDS: Amlodipine 5 MG TAB PO SCH ×2 (08:50→20:18)
[2018-07-17] MEDS: Docusate 100 MG CAP PO SCH ×2 (08:50→20:18)
[2018-07-17] MEDS: Amitriptyline HCl 25 MG TAB PO SCH ×2 (08:50→20:18)
[2018-07-17] MEDS: Sodium Chloride 0.9% 1,000 ML IV SCH ×2 (08:51→17:20)
[2018-07-17] MEDS ORDERED: Lidocaine 1% (PF) 30 ML VIAL SC SCH (10:00)
[2018-07-17] MEDS ORDERED: Lidocaine 1% w/Epinephrine 1:100K 20 ML VIAL FS SCH (10:15)
[2018-07-17 10:52] LABS: CRP (Inflammatory) 25.88 mg/dL (= or < 0.5); Uric Acid 5.4 mg/dL (2.6-6.0)
[2018-07-17 11:35] LABS: Vancomycin, Random 5.8 ug/mL (See Comment)
[2018-07-17] MEDS ORDERED: Vancomycin HCl 750 MG in Sodium Chloride 0.9% 250 ML 250 ML IVPB SCH (13:00)
--- NOTE | 2018-07-17 13:39 | EKG ---
Test Reason : Blood Pressure : / mmHG Vent. Rate : 103 BPM Atrial Rate : 103 BPM P-R Int : 138 ms QRS Dur : 092 ms QT Int : 354 ms P-R-T Axes : 037 -09 088 degrees QTc Int : 463 ms Sinus tachycardia Voltage criteria for left ventricular hypertrophy Nonspecific T wave abnormality Abnormal ECG When compared with ECG of 23-APR-2018 21:37, No significant change was found Confirmed by SONIA KHAN, SAmita ([id number]) on 07/17/2018 1:38:48 PM Referred By: Confirmed By:DR. Carter SCOTT MD
--- NOTE | 2018-07-17 14:50 | OP ---
DATE OF PROCEDURE: 07/17/2018 This is Jojo Hood PA-C dictating on behalf of Aftab Calhoun. PROCEDURE: Arthrocentesis of right knee. INDICATIONS FOR PROCEDURE: Right knee pain and swelling with history of gout. Procedure requested b y Internal Medicine team. BRIEF HISTORY: This is a 78-year-old female who presented to the emergency department and has been a dmitted for a UTI and sepsis. Upon further workup, the patient was found to have polyarthralgia and swelling of the right knee. She has been indicated for this procedure. Consent was signed. Risks, benefits, and alternatives of the procedure were discussed with the patient. She verbalized understa nding and was amenable to the procedure. DESCRIPTION OF PROCEDURE: The patient's right knee was sterilely prepped. Patient received local an esthetic of 5 mL of Marcaine without epinephrine to the right knee. Once anesthesia was achieved, vadim salazar's knee was chloraprepped again. An 18-gauge needle was inserted in the superolateral portion o f the joint. The aspirate was obtained in the amount of approximately 15 mL. This was slightly clou dy. No purulence was noted. Positive string sign. Needle was withdrawn and pressure was applied. Silvestre wrap applied to the knee. The patient tolerated the procedure well. Distal neurovascular status intact following the procedure. Specimen sent to the lab for further analysis.
--- NOTE | 2018-07-17 15:06 | RAD ---
RIGHT KNEE 4 VIEWS: HISTORY: Right knee swelling. FINDINGS: There are extensive degenerative changes in the right knee manifested by osteophyte formation and renzo nt space narrowing. There is chondrocalcinosis. IMPRESSION: Right knee osteoarthritis. POS: [facility]
--- NOTE | 2018-07-17 15:08 | RAD ---
LEFT KNEE 4 VIEWS: HISTORY: Left knee pain, gout. FINDINGS: There are mild degenerative changes in the left knee manifested by osteophyte formation and joint spa ce narrowing. There is chondrocalcinosis. IMPRESSION: Left knee osteoarthritis. POS: [facility]
[2018-07-17 15:13] LABS: BF Color Yellow; Body Fluid Source SYNOVIAL FLUID; Clarity Hazy (Clear); RBC Background Count 0.001; RBC Count-Automated 14000 /cumm; Tube # EDTA; WBC/NonHematic-Auto 10200 /cumm
[2018-07-17 15:18] LABS: Synovial Fluid, Glucose 97 mg/dL (Not Available); Synovial Fluid, Protein 3.6 g/dL (Not Available); Synovial Fluid, Uric Acid Less than 5.0 mg/dL (Not Available)
--- NOTE | 2018-07-17 15:49 | CON-2 ---
DATE OF CONSULTATION: 07/17/2018 Jojo Hood PA-C., dictating for Aftab Calhoun M.D. REQUESTING PHYSICIAN: Marko Calhoun M.D. CONSULTING PHYSICIAN: Aftab Calhoun M.D. REASON FOR CONSULTATION: Right knee pain and swelling, history of gout. HISTORY OF PRESENT ILLNESS: This is a 78-year-old female, who was admitted for sepsis and UTI, after she presented with fever and chills. Upon further workup, the patient was found to have polyarthral eileen and history of gout. Specifically, complaining of right knee pain greater than any other joints. We have been consulted for right knee pain and evaluation of possible gout, requesting an arthrocen tesis. Currently, at bedside, the patient states that she lives at home with her son and normally am bulates with a walking stick. She states she does not walk far. She does report multiple joint pain with the right knee worse than any other joint at the current time. Positive history of gout. She states this does feel like her normal gout in her right knee, however, she has not had any redness to the knee. No recent trauma. No recent steroid injections or needles have been inserted into the ri ght knee. PAST MEDICAL HISTORY: Significant for hypertension, gout, gastroesophageal reflux disease, chronic a nemia, anxiety, and hiatal hernia. PAST SURGICAL HISTORY: Hysterectomy. ALLERGIES: CODEINE, IBUPROFEN, PENICILLIN. FAMILY HISTORY: Reviewed and noncontributory. SOCIAL HISTORY: The patient currently lives at home with son. No smoking, alcohol, or drug use repo rted. REVIEW OF SYSTEMS: Ten-point review of systems was conducted and otherwise negative except for state d above. PHYSICAL EXAMINATION: VITAL SIGNS: Temperature 99.3, pulse of 101, respiratory rate of 18, and blood pressure of 163/80. GENERAL: Currently, the patient is awake and alert. She is in no acute distress. She is pleasant a nd cooperative with exam today. No family is currently at bedside. HEENT: Head is normocephalic, atraumatic. NECK: Supple. Trachea midline. Breathing nonlabored. EXTREMITIES: The bilateral upper extremities were examined. There does appear to be somewhat of a c ontracture on the right upper extremity at the elbow. The left upper extremity appears shortened fro m an old humerus fracture. Distal neurovascular status is intact and the patient uses these without any signs of discomfort. With regard to the lower extremities, the right lower extremity has a palpa ble effusion of approximately 2+. There is no surrounding erythema. No palpable warmth. Pain is ex pressed with any sort of passive range of motion. The patient is unable to actively move her knee se condary to pain. Distal neurovascular status is intact. Left lower extremity shows some active rang e of motion, but this appears somewhat limited. X-rays are currently being done at bedside. LABORATORY DATA: Shows an ESR of 108, white blood cell count is 8.9. CRP is elevated at 25.88. ASSESSMENT: Right knee pain with knee effusion. History of gout. PLAN: At this point, we will perform arthrocentesis to send joint fluid to the lab for further clifford sis. Patient has signs of inflammatory reaction on her labs today. Pending x-rays. This case was d iscussed with Dr. Calhoun and we will go ahead with an arthrocentesis of the right knee. Consent h as been obtained. Procedure discussed at length with the patient. She verbalized understanding and is amenable to this. She has signed an informed consent. Arthrocentesis was performed at bedside. Please see procedure note for further details. Synovial fluid sent to lab for further analysis. We will continue to follow. The patient tolerated the procedure well. Thank you for this consultation.
--- NOTE | 2018-07-17 16:02 | PDOC.PN ---
- Subjective Encounter Start Date: 07/17/18 Encounter Start Time: 11:00 Patient seen and examined for Sepsis. No new complaints. No overnight events - Objective Resuscitation Status: Resuscitation Status FULL:Full Resuscitation MAR Reviewed: Yes Vital Signs & Weight: Vital Signs (12 hours) Temp Pulse Resp BP BP Pulse Ox 07/17/18 11:09 99.3 F 101 H 18 163/80 H 94 L 07/17/18 08:50 98 156/80 H 07/17/18 08:00 94 L 07/17/18 07:14 98.6 F 98 18 156/80 H 94 L 07/17/18 06:22 102 H 07/17/18 05:00 99 F 102 H 16 185/88 H 94 L Weight Weight 99 lb 6.856 oz I&O: 07/16/18 07/17/18 07/18/18 06:59 06:59 06:59 Intake Total 750 1980 Balance 750 1979 Result Diagrams: 07/17/18 04:25 07/17/18 04:25 Phys Exam - Physical Examination Constitutional: NAD Respiratory: no wheezing, no rhonchi Cardiovascular: RRR, no rub Gastrointestinal: soft, non-tender, positive bowel sounds Musculoskeletal: no edema Rt knee slightly tender, No erythema or sig. warmth Neurological: moves all 4 limbs Dx/Plan - Plan DVT proph w/SCDs IMPRESSION: 1. Generalized weakness /Sepsis ?source 2. Hypertension with hypertensive urgency. 3. Chronic kidney disease, stage 3. 4. Gastroesophageal reflux disease. on PPI 5. Hypomagnesemia - replaced 6. Gout. 7. PENICILLIN allergy/Bgbtyzvy-ag-oyuwk hiatal hernia. PLAN: Cont Vancomycin & Levaquin Monitor Vancomycin level Rt knee arthrocentesis Cont NS - reduce rate to 70 ml/hr Start Colchicine for possible gout flare (Patient takes PRN at home) Cont other meds as below Ambulate Laboratory Tests 07/17/18 07/17/18 07/17/18 04:25 09:56 09:56 ESR Westergren 108 Magnesium 2.5 C-Reactive Protein 25.88 H Microbiology 07/14/18 19:11 Urine Straight Catheter Urine Culture - Final NO GROWTH AT 48 HOURS 07/16/18 11:31 Venous blood - Right Hand Blood Culture - Preliminary Specimen has been received and culture in progress. No Growth to date. 07/16/18 11:31 Venous blood - Right Arm Blood Culture - Preliminary Specimen has been received and culture in progress. No Growth to date. Review of Systems - Review of Systems Respiratory: negative: Cough, Dry, Shortness of Breath, Hemoptysis, SOB with Excertion, Pleuritic Pain, Sputum, Wheezing Cardiovascular: negative: chest pain, palpitations, orthopnea, paroxysmal nocturnal dyspnea, edema, light headedness, other Gastrointestinal: negative: Nausea, Vomiting, Abdominal Pain, Diarrhea, Constipation, Melena, Hematochezia, Other Genitourinary: negative: Dysuria, Frequency, Incontinence, Hematuria, Retention , Other Musculoskeletal: negative: Neck Pain, Shoulder Pain, Arm Pain, Back Pain, Hand Pain, Leg Pain, Foot Pain, Other - Medications/Allergies Allergies/Adverse Reactions: Allergies Allergy/AdvReac Type Severity Reaction Status Date / Time codeine Allergy Verified 04/24/18 01:44 ibuprofen Allergy Verified 04/24/18 01:44 Penicillins Allergy Verified 04/24/18 01:44 Medications: Current Medications Acetaminophen (Tylenol) 650 mg PO Q6H PRN PRN Reason: Headache/Fever or Pain Last Admin: 07/17/18 06:21 Dose: 650 mg Al Hydroxide/Mg Hydroxide (Maalox) 30 ml PO Q6H PRN PRN Reason: Heartburn or Indigestion Alprazolam (Xanax) 0.25 mg PO BIDPRN PRN PRN Reason: Anxiety Amitriptyline HCl (Elavil) 25 mg PO BID [facility] Last Admin: 07/17/18 08:50 Dose: 25 mg Amlodipine Besylate (Norvasc) 5 mg PO BID [facility] Last Admin: 07/17/18 08:50 Dose: 5 mg Calcium Carbonate (Tums) 1,000 mg PO Q4H PRN PRN Reason: Heartburn or Indigestion Clonidine (Catapres) 0.1 mg PO Q4H PRN PRN Reason: Systolic BP > 180 Last Admin: 07/17/18 00:22 Dose: 0.1 mg Colchicine (Colcrys) 0.3 mg PO BID [facility] Last Admin: 07/17/18 08:49 Dose: 0.3 mg Docusate Sodium (Colace) 100 mg PO BID [facility] Last Admin: 07/17/18 08:50 Dose: 100 mg Fentanyl (Sublimaze) 25 mcg SLOW IVP Q6H PRN PRN Reason: Severe Pain (7-10) Hydralazine HCl (Apresoline) 10 mg SLOW IVP Q4H PRN PRN Reason: SBP Greater Than 180 Last Admin: 07/17/18 06:22 Dose: 10 mg Levofloxacin 500 mg/ Device 100 mls @ 100 mls/hr IVPB Q24HR [facility] Last Admin: 07/17/18 08:50 Dose: 100 mls Sodium Chloride (Normal Saline 0.9%) 1,000 mls @ 100 mls/hr IV .Q10H [facility] Last Admin: 07/17/18 08:51 Dose: 1,000 mls Vancomycin HCl 750 mg/ Sodium (Chloride) 250 mls @ 250 mls/hr IVPB Q24HR@1300 [facility] Last Admin: 07/17/18 12:40 Dose: 250 mls Lidocaine/Epinephrine (Xylocaine 1% W/ Epi 1:100k) 20 ml FS [facility] Stop: 07/17/18 23:59 Magnesium Hydroxide (Milk Of Magnesium) 30 ml PO DAILYPRN PRN PRN Reason: Constipation Last Admin: 07/17/18 06:21 Dose: 30 ml Miscellaneous Medication (Pharmacy To Dose) 1 each IVPB PRN PRN PRN Reason: Pharmacy to dose Ondansetron HCl (Zofran Odt) 4 mg PO Q6H PRN PRN Reason: Nausea/Vomiting Ondansetron HCl (Zofran) 4 mg IVP Q6H PRN PRN Reason: Nausea/Vomiting Pantoprazole Sodium (Protonix) 40 mg PO BID [facility] Last Admin: 07/17/18 08:50 Dose: 40 mg Senna (Senokot) 2 tab PO HSPRN PRN PRN Reason: Constipation Last Admin: 07/16/18 20:08 Dose: 2 tab Sodium Chloride (Flush - Normal Saline) 10 ml IVF Q12HR [facility] Last Admin: 07/17/18 08:51 Dose: Not Given Sodium Chloride (Flush - Normal Saline) 10 ml IVF PRN PRN PRN Reason: Saline Flush
[2018-07-17 16:18] LABS: BF Segmented Neutrophils 83 %; Cell Count Non Hematic 16 %; Lymphocytes 1 %
[2018-07-17 18:53] LABS: Complement-C4 22.7 mg/dL (15-57)
--- NOTE | 2018-07-17 20:54 | PRG ---
DATE OF SERVICE: 07/17/2018 SUBJECTIVE: Ms. Ryan is about the same. Still with pain in the joints, particularly in the knees. No dyspnea or chest pain. No abdominal pain or diarrhea. OBJECTIVE: VITAL SIGNS: T-max 100.1 yesterday; today, she has been afebrile with T-max 99.3. Other vital signs with some elevation in systolic blood pressure and some mild tachycardia. GENERAL: Awake, alert, oriented. LUNGS: Symmetric air entry. HEART: S1, S2 regular rate. ABDOMEN: Soft, not distended. Tender knees, particularly the right side. LABORATORY DATA: White cell count 8.9, hemoglobin 8.9, platelets 171, MCV 87 with 86% neutrophils. Uric acid was 5.4, creatinine 1.25. She had 10,200 wbc's and the crystal ID is pending. Synovial ur ic acid was less than 5. ASSESSMENT AND DISCUSSION: History of polyarticular gout, fever, and arthralgias; admitted with hypo xemia as well. The differential diagnosis again polyarticular gout and other inflammatory arthropath y including the possibility of autoimmune arthropathies if the workup does not indicate any evidence of crystals in the joint. We will submit antinuclear antibody and rheumatoid factor.
[2018-07-18] MEDS: Acetaminophen 325 MG TAB PO PRN ×2 (00:12→06:08)
[2018-07-18] MEDS: Sodium Chloride 0.9% 1,000 ML IV SCH ×2 (00:15→04:21)
[2018-07-18 05:48] LABS: #Lymphocytes 0.7 thou/uL (1.20-3.40); #Monocytes 0.6 thou/uL (0.11-0.59); #Neutrophils 7.2 thou/uL (1.40-6.50); %Basophils 0.1 % (0.0-1.0); %Eosinophils 0.5 % (0.0-10.0); %Monocytes 7.1 % (0.0-10.0); %Neutrophils 84.3 % (42.0-75.0); Hemoglobin 9.5 g/dL (12.0-16.0); Mean Corpuscular HGB CONC 31.6 g/dL (32.0-36.0); Mean Corpuscular Hemoglobin 27.5 pg (27.0-31.0); Mean Corpuscular Volume 86.9 fL (78.0-98.0); Mean Platelet Volume 8.2 fL (7.4-10.4); Platelet Count 208 thou/uL (130-400); RBC Distribution Width 14.1 % (11.5-14.5); Red Blood Cell (RBC) Count 3.45 mill/uL (4.20-5.40); White Blood Cell (WBC) Count 8.6 thou/uL (4.8-10.8)
[2018-07-18 05:57] LABS: Anion Gap 9 mmol/L (10-20); BUN (Urea Nitrogen) 22 mg/dL (9.8-20.1); Calc. Creatinine Clearance 29 mL/min (70-130); Carbon Dioxide 22 mmol/L (23-31); Chloride 112 mmol/L (98-107); Estimated GFR-MDRD 57; Potassium 3.7 mmol/L (3.5-5.1); Sodium 139 mmol/L (136-145)
[2018-07-18 05:58] LABS: Calcium 9.1 mg/dL (7.8-10.44); Glucose 97 mg/dL (83-110)
[2018-07-18] MEDS: Amlodipine 5 MG TAB PO SCH ×2 (09:16→20:10)
[2018-07-18] MEDS: Colchicine 0.6 MG TAB PO SCH ×2 (09:17→20:10)
[2018-07-18] MEDS: Docusate 100 MG CAP PO SCH ×2 (09:18→20:10)
[2018-07-18] MEDS: Amitriptyline HCl 25 MG TAB PO SCH ×2 (09:18→20:09)
[2018-07-18] MEDS: Fentanyl 100 MCG/2 ML VIAL SLOW IVP PRN ×2 (09:19→20:11)
[2018-07-18 12:53] LABS: Vancomycin, Trough 9.4 ug/mL
[2018-07-18] MEDS ORDERED: Vancomycin HCl 500 MG in Sodium Chloride 0.9% 100 ML IVPB SCH (13:00)
--- NOTE | 2018-07-18 18:35 | PRG ---
DATE OF SERVICE: 07/18/2018 SUBJECTIVE: Feeling about the same, but a bit less pain in the joints than before. OBJECTIVE: T-max 99. Exam is pretty much similar to previously found. White cell count 8.6, hemoglobin 9.5. The fluid crystal analysis is consistent with pseudogout cryst als of calcium pyrophosphate. Intra and extracellular noted. Gram stain of the synovial fluid obtai vernon and cultures thus far negative. 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 The complement levels are normal. [place] and rheumatoid factor pending. The patient to be discharged on colchicine and discontinue antimicrobial therapy.
--- NOTE | 2018-07-18 20:04 | PDOC.PN ---
- Subjective Encounter Start Date: 07/18/18 Encounter Start Time: 10:45 Patient seen and examined for Sepsis. No new complaints. No overnight events - Objective Resuscitation Status: Resuscitation Status FULL:Full Resuscitation MAR Reviewed: Yes Vital Signs & Weight: Vital Signs (12 hours) Temp Pulse Resp BP BP BP Pulse Ox 07/18/18 19:46 99.0 F 96 20 166/97 H 95 07/18/18 16:45 98.3 F 94 18 184/84 H 95 07/18/18 11:53 98.6 F 93 18 150/81 H 95 07/18/18 09:16 105 H 168/91 H Weight Weight 99 lb 6.856 oz I&O: 07/17/18 07/18/18 07/19/18 06:59 06:59 06:59 Intake Total 1979 1036 1760 Balance 1979 1036 1760 Result Diagrams: 07/18/18 03:57 07/18/18 03:57 Phys Exam - Physical Examination Constitutional: NAD Respiratory: no wheezing, no rhonchi Cardiovascular: RRR, no rub Gastrointestinal: soft, non-tender, positive bowel sounds Musculoskeletal: no edema Neurological: non-focal, moves all 4 limbs Psychiatric: A&O x 3 Dx/Plan - Plan DVT proph w/SCDs IMPRESSION: 1. Generalized weakness /Sepsis ?source 2. Hypertension with hypertensive urgency. 3. Chronic kidney disease, stage 3. 4. Gastroesophageal reflux disease. on PPI 5. Hypomagnesemia - replaced 6. Gout. 7. PENICILLIN allergy/Jkogyfmo-gf-fdjsg hiatal hernia. PLAN: Await synovial fluid studies - crystal analysis and culture Cont Vancomycin & Levaquin Monitor Vancomycin level Cont NS Cont Colchicine Cont other meds as below Ambulate Await [place] and RA Review of Systems - Review of Systems Respiratory: negative: Cough, Dry, Shortness of Breath, Hemoptysis, SOB with Excertion, Pleuritic Pain, Sputum, Wheezing Cardiovascular: negative: chest pain, palpitations, orthopnea, paroxysmal nocturnal dyspnea, edema, light headedness, other - Medications/Allergies Allergies/Adverse Reactions: Allergies Allergy/AdvReac Type Severity Reaction Status Date / Time codeine Allergy Verified 04/24/18 01:44 ibuprofen Allergy Verified 04/24/18 01:44 Penicillins Allergy Verified 04/24/18 01:44 Medications: Current Medications Acetaminophen (Tylenol) 650 mg PO Q6H PRN PRN Reason: Headache/Fever or Pain Last Admin: 07/18/18 06:08 Dose: 650 mg Al Hydroxide/Mg Hydroxide (Maalox) 30 ml PO Q6H PRN PRN Reason: Heartburn or Indigestion Alprazolam (Xanax) 0.25 mg PO BIDPRN PRN PRN Reason: Anxiety Amitriptyline HCl (Elavil) 25 mg PO BID [facility] Last Admin: 07/18/18 09:18 Dose: 25 mg Amlodipine Besylate (Norvasc) 5 mg PO BID [facility] Last Admin: 07/18/18 09:16 Dose: 5 mg Calcium Carbonate (Tums) 1,000 mg PO Q4H PRN PRN Reason: Heartburn or Indigestion Clonidine (Catapres) 0.1 mg PO Q4H PRN PRN Reason: Systolic BP > 180 Last Admin: 07/17/18 00:22 Dose: 0.1 mg Colchicine (Colcrys) 0.3 mg PO BID [facility] Last Admin: 07/18/18 09:17 Dose: 0.3 mg Docusate Sodium (Colace) 100 mg PO BID [facility] Last Admin: 07/18/18 09:18 Dose: 100 mg Fentanyl (Sublimaze) 25 mcg SLOW IVP Q6H PRN PRN Reason: Severe Pain (7-10) Last Admin: 07/18/18 09:19 Dose: 25 mcg Hydralazine HCl (Apresoline) 10 mg SLOW IVP Q4H PRN PRN Reason: SBP Greater Than 180 Last Admin: 07/17/18 06:22 Dose: 10 mg Sodium Chloride (Normal Saline 0.9%) 1,000 mls @ 70 mls/hr IV .[id number] [facility] Last Admin: 07/18/18 04:21 Dose: Not Given Magnesium Hydroxide (Milk Of Magnesium) 30 ml PO DAILYPRN PRN PRN Reason: Constipation Last Admin: 07/17/18 06:21 Dose: 30 ml Miscellaneous Medication (Pharmacy To Dose) 1 each IVPB PRN PRN PRN Reason: Pharmacy to dose Ondansetron HCl (Zofran Odt) 4 mg PO Q6H PRN PRN Reason: Nausea/Vomiting Ondansetron HCl (Zofran) 4 mg IVP Q6H PRN PRN Reason: Nausea/Vomiting Pantoprazole Sodium (Protonix) 40 mg PO BID [facility] Last Admin: 07/18/18 09:16 Dose: 40 mg Senna (Senokot) 2 tab PO HSPRN PRN PRN Reason: Constipation Last Admin: 07/16/18 20:08 Dose: 2 tab Sodium Chloride (Flush - Normal Saline) 10 ml IVF Q12HR [facility] Last Admin: 07/18/18 09:31 Dose: Not Given Sodium Chloride (Flush - Normal Saline) 10 ml IVF PRN PRN PRN Reason: Saline Flush
[2018-07-19] MEDS: Acetaminophen 325 MG TAB PO PRN ×2 (00:14→09:35)
[2018-07-19] MEDS: Fentanyl 100 MCG/2 ML VIAL SLOW IVP PRN ×2 (04:57→12:29)
[2018-07-19] MEDS: Amlodipine 5 MG TAB PO SCH ×2 (09:14→21:03)
[2018-07-19] MEDS: Amitriptyline HCl 25 MG TAB PO SCH ×2 (09:15→21:04)
[2018-07-19] MEDS: Colchicine 0.6 MG TAB PO SCH ×2 (09:15→21:03)
[2018-07-19] MEDS: Docusate 100 MG CAP PO SCH ×2 (09:15→21:04)
[2018-07-19] MEDS: Hydrochlorothiazide 25 MG TAB PO SCH (09:35)
[2018-07-19 15:15] LABS: ANA Symphony (Qualitative) Negative (Negative); CCP IgG Antibody Less than 0.4 EliAU/mL (<7 Negative); EliA RAS New Method **** NEW METHOD ****; Rheumatoid Factor IgA Antibody 2.1 IU/mL (<14 Negative); Rheumatoid Factor IgM Antibody 0.6 IU/mL (<3.5 Negative); dsDNA IgG Antibody 4.9 IU/mL (<10 Negative)
[2018-07-19] MEDS: predniSONE 20 MG TAB PO SCH (17:12)
--- NOTE | 2018-07-19 23:01 | PDOC.PN ---
- Subjective Encounter Start Date: 07/19/18 Encounter Start Time: 11:00 Patient seen and examined for possible sepsis. Didn't sleep last night due to intractable joint pains mainly in B/L ankles/knees. No other complaints. No overnight events - Objective Resuscitation Status: Resuscitation Status FULL:Full Resuscitation MAR Reviewed: Yes Vital Signs & Weight: Vital Signs (12 hours) Temp Pulse Resp BP BP BP Pulse Ox 07/19/18 21:03 101 H 159/84 H 07/19/18 20:00 93 L 07/19/18 19:31 99.2 F 97 20 159/84 H 93 L 07/19/18 16:39 158/82 H 07/19/18 16:00 98.4 F 94 16 171/104 H 95 Weight Weight 99 lb 6.856 oz I&O: 07/18/18 07/19/18 07/20/18 06:59 06:59 06:59 Intake Total 1036 2140 960 Balance 1036 2140 960 Result Diagrams: 07/18/18 03:57 07/18/18 03:57 Phys Exam - Physical Examination in pain Respiratory: no wheezing, no rhonchi Cardiovascular: RRR, no rub Gastrointestinal: soft, positive bowel sounds Musculoskeletal: no edema Dx/Plan - Plan DVT proph w/SCDs IMPRESSION: 1. Generalized weakness /Acute Psuedogout flare. Sepsis ruled out 2. Hypertension with hypertensive urgency. 3. Chronic kidney disease, stage 3. 4. Gastroesophageal reflux disease. on PPI 5. Hypomagnesemia - replaced 6. Gout. 7. PENICILLIN allergy/Iskxogsm-vy-eurpv hiatal hernia. PLAN: Vancomycin & Levaquin discontinued Cont NS - reduce rate Add Steroids since NSAIDs are S/I due to CKD Resume HCTZ Cont Colchicine Cont other meds as below Ambulate - Patient is refusing PT Await [place] and RA Review of Systems - Review of Systems Respiratory: negative: Cough, Dry, Shortness of Breath, Hemoptysis, SOB with Excertion, Pleuritic Pain, Sputum, Wheezing Cardiovascular: negative: chest pain, palpitations, orthopnea, paroxysmal nocturnal dyspnea, edema, light headedness, other - Medications/Allergies Allergies/Adverse Reactions: Allergies Allergy/AdvReac Type Severity Reaction Status Date / Time codeine Allergy Verified 04/24/18 01:44 ibuprofen Allergy Verified 04/24/18 01:44 Penicillins Allergy Verified 04/24/18 01:44 Medications: Current Medications Acetaminophen (Tylenol) 650 mg PO Q6H PRN PRN Reason: Headache/Fever or Pain Last Admin: 07/19/18 09:35 Dose: 650 mg Al Hydroxide/Mg Hydroxide (Maalox) 30 ml PO Q6H PRN PRN Reason: Heartburn or Indigestion Alprazolam (Xanax) 0.25 mg PO BIDPRN PRN PRN Reason: Anxiety Amitriptyline HCl (Elavil) 25 mg PO BID [facility] Last Admin: 07/19/18 21:04 Dose: 25 mg Amlodipine Besylate (Norvasc) 5 mg PO BID [facility] Last Admin: 07/19/18 21:03 Dose: 5 mg Calcium Carbonate (Tums) 1,000 mg PO Q4H PRN PRN Reason: Heartburn or Indigestion Clonidine (Catapres) 0.1 mg PO Q4H PRN PRN Reason: Systolic BP > 180 Last Admin: 07/17/18 00:22 Dose: 0.1 mg Colchicine (Colcrys) 0.3 mg PO BID [facility] Last Admin: 07/19/18 21:03 Dose: 0.3 mg Docusate Sodium (Colace) 100 mg PO BID [facility] Last Admin: 07/19/18 21:04 Dose: 100 mg Fentanyl (Sublimaze) 25 mcg SLOW IVP Q6H PRN PRN Reason: Severe Pain (7-10) Last Admin: 07/19/18 12:29 Dose: 25 mcg Hydralazine HCl (Apresoline) 10 mg SLOW IVP Q4H PRN PRN Reason: SBP Greater Than 180 Last Admin: 07/17/18 06:22 Dose: 10 mg Hydrochlorothiazide (Hydrochlorothiazide) 25 mg PO DAILY [facility] Last Admin: 07/19/18 09:35 Dose: 25 mg Magnesium Hydroxide (Milk Of Magnesium) 30 ml PO DAILYPRN PRN PRN Reason: Constipation Last Admin: 07/17/18 06:21 Dose: 30 ml Ondansetron HCl (Zofran Odt) 4 mg PO Q6H PRN PRN Reason: Nausea/Vomiting Ondansetron HCl (Zofran) 4 mg IVP Q6H PRN PRN Reason: Nausea/Vomiting Pantoprazole Sodium (Protonix) 40 mg PO BID [facility] Last Admin: 07/19/18 21:04 Dose: 40 mg Prednisone (Prednisone) 20 mg PO BID-[facility] Last Admin: 07/19/18 17:12 Dose: 20 mg Senna (Senokot) 2 tab PO HSPRN PRN PRN Reason: Constipation Last Admin: 07/16/18 20:08 Dose: 2 tab Sodium Chloride (Flush - Normal Saline) 10 ml IVF Q12HR [facility] Last Admin: 07/19/18 21:04 Dose: 10 ml Sodium Chloride (Flush - Normal Saline) 10 ml IVF PRN PRN PRN Reason: Saline Flush
[2018-07-20 07:30] VITALS: BP 176/72; TEMP 98.4
[2018-07-20] MEDS ORDERED: Metoprolol Tartrate 25 MG TAB PO SCH ×2 (08:45→21:00)
[2018-07-20] MEDS: Acetaminophen 325 MG TAB PO PRN ×2 (08:57→16:40)
[2018-07-20] MEDS: Docusate 100 MG CAP PO SCH (08:57)
[2018-07-20] MEDS: Colchicine 0.6 MG TAB PO SCH (08:58)
[2018-07-20] MEDS: Hydrochlorothiazide 25 MG TAB PO SCH (08:58)
[2018-07-20] MEDS: Amlodipine 5 MG TAB PO SCH (08:58)
[2018-07-20] MEDS: Amitriptyline HCl 25 MG TAB PO SCH (08:58)
[2018-07-20] MEDS: predniSONE 20 MG TAB PO SCH (08:59)
[2018-07-21] MEDS ORDERED: predniSONE 20 MG TAB PO SCH (08:00)
--- NOTE | 2018-07-21 14:09 | DIS ---
DATE OF ADMISSION: 07/14/2018 DATE OF DISCHARGE: 07/20/2018 DISCHARGE DISPOSITION: Home. FOLLOWUP: 1. Follow up with primary care physician, Dr. Rodrigues in 1 week. 2. Follow up with Rheumatology, Dr. Juana Nagel in one week. ALLERGIES: The patient is allergic to CODEINE, IBUPROFEN, PENICILLIN. The patient was seen and examined on the day of discharge. Denies any new complaints, no chest pain, shortness of breath, palpitations. DISCHARGE MEDICATIONS: 1. Prednisone 20 mg daily for 5 days, then discontinue. 2. Colchicine 0.6 mg daily. 3. Amlodipine 5 mg twice a day. 4. All other home medications were left, unchanged. BRIEF HOSPITAL COURSE: The patient is a 78-year-old -[place] female with hypertension and go ut, presented to the emergency room with fever and chills of 2 days' duration. Please refer to the h istory and physical for further details. The patient was admitted to the hospital with a diagnosis of generalized weakness along with sepsis o f unclear etiology. WBC count on admission was 9.6 with neutrophils of 85.7. CRP was 25.8 with ESR of 108. She was started on broad spectrum antibiotics after blood cultures and urine cultures. Her cultures remained negative. Chest x-ray was negative for infiltrate. Infectious Disease was consult ed. Infectious Disease recommended arthrocentesis of the knee to rule out inflammatory conditions li ke gout or pseudogout. The patient underwent right knee arthrocentesis that showed hazy fluid with W BC around 10,000 with 83% neutrophils. Microbiology was consistent with calcium pyrophosphate peng ls. Due to chronic kidney disease, NSAID were avoided. She showed good improvement on prednisone. Antibiotics have been discontinued per Infectious Disease recommendation. A correction facility was recommended; however, the patient declined. She also refused home health care. Plan of care wa s discussed with the patient in detail. She stated understanding. FINAL DIAGNOSES: 1. Generalized weakness. 2. Systemic inflammatory response syndrome secondary to acute pseudogout flare. Infectious etiology ruled out. 3. Hypertension with hypertensive urgency. Amlodipine has been added. 4. Chronic kidney disease stage 3. 5. Gastroesophageal reflux disease. 6. Hypomagnesemia, replaced. 7. History of gout. 8. Moderate to large hiatal hernia. 9. PENICILLIN allergy. 10. Metabolic acidosis. 11. Elevated inflammatory markers. 12. Moderate protein calorie malnutrition. 13. Chronic anemia, probably secondary to chronic disease. Total time coordinating the discharge of this patient was 34 minutes.
== END 2018-07-20 18:22 | disposition home or self-care (01) | DRG 554 ==
LOC: ERS 22:35 → T4-B 23:40
PROVIDERS: ADMIT Hospitalist; ATTEND Hospitalist
PROC: 0S9C3ZX Drainage of Right Knee Joint, Percutaneous Approach, Diagnostic (ICD-10-PCS; principal; 2018-07-17)
DX: M10.9 Gout, unspecified (principal); N39.0 Urinary tract infection, site not specified; K21.9 Gastro-esophageal reflux disease without esophagitis; F41.9 Anxiety disorder, unspecified; D64.9 Anemia, unspecified; I16.0 Hypertensive urgency; I12.9 Hypertensive chronic kidney disease with stage 1 through stage 4 chronic kidney disease, or unspecified chronic kidney disease; N18.3 Chronic kidney disease, stage 3 (moderate); E83.42 Hypomagnesemia; K44.9 Diaphragmatic hernia without obstruction or gangrene; Z90.710 Acquired absence of both cervix and uterus; Z88.5 Allergy status to narcotic agent; Z88.6 Allergy status to analgesic agent; Z88.0 Allergy status to penicillin
CPT/HCPCS: 36415; 80048; 80053; 80202; 82945; 83520; 83735; 84157; 84550; 84560; 85025; 85060; 85652; 86038; 86140; 86160; 86200; 86225; 87040; 87070; 87205; 89051; 89060; 93005; 93010; 99285; A4216; G8978-GP-CM; G8979-GP-CK; G8979-GP-CL; G8987-GO-CM; G8988-GO-CK; J0360; J1956; J2001; J2270; J2920; J3010; J3370; J3475; J7050; J7506

== ENCOUNTER 2019-10-30 10:57 | Day surgery (SDC) | payer MEDICARE, MEDICAID ==
[2019-10-30] MEDS ORDERED: Proparacaine 0.5% Opth 15 ML BOT EA EYE SCH (11:30)
[2019-10-30] MEDS ORDERED: Tetracaine HCl/PF 1% 20 MG/2 ML AMP ONE (13:09)
== END 2019-10-30 13:45 | disposition home or self-care (01) ==
LOC: SDC 10:57
PROVIDERS: ATTEND Ophthalmology
PROC: 089D3ZZ Drainage of Left Iris, Percutaneous Approach (ICD-10-PCS; principal; 2019-10-30)
DX: H40.033 Anatomical narrow angle, bilateral (principal); H40.20X0 Unspecified primary angle-closure glaucoma, stage unspecified; Z79.899 Other long term (current) drug therapy; Z88.0 Allergy status to penicillin; Z88.5 Allergy status to narcotic agent

== ENCOUNTER 2023-05-31 18:02 | Inpatient (IN) | payer MEDICARE, MEDICAID ==
[2023-05-31 19:53] LABS: Actual Bicarbonate (HCO3v) 17.3 mEq/L (22-28); Base Excess -6.7 mEq/L (-2.0 to +3.0); Chloride (VBG) 105 mmol/L (98-106); Hematocrit-VBG 29 % (36.0-47.0); Hemoglobin (Hb) 9.7 g/dL (11.7-16.1); Sodium 134.9 mmol/L (133-146); pH (venous) 7.387 (7.32-7.43)
[2023-05-31] MEDS ORDERED: LOKELMA 10 GM PACKET PO SCH (20:00)
[2023-05-31] MEDS ORDERED: Glucagon 1 MG/ML KIT IM PRN (20:29)
[2023-05-31] MEDS ORDERED: Dextrose 50% Abboject 50 ML SYRINGE SLOW IVP PRN (20:29)
[2023-05-31] MEDS ORDERED: Dextrose 5% in Water 1,000 ML IV PRN (20:29)
[2023-05-31] MEDS ORDERED: Ondansetron ODT 4 MG TAB PO PRN (20:31)
[2023-05-31] MEDS ORDERED: Acetaminophen 650 MG Suppository PR PRN (20:31)
[2023-05-31] MEDS ORDERED: Ondansetron PF 4 MG/2 ML Vial IVP PRN (20:31)
[2023-05-31 20:39] LABS: Troponin I 0.022 ng/mL (< 0.028)
[2023-05-31 20:42] LABS: Anion Gap 18 mmol/L (10-20); BUN (Urea Nitrogen) 77 mg/dL (9.8-20.1); Calc. Creatinine Clearance 4 mL/min (70-130); Calcium 9.7 mg/dL (7.8-10.44); Carbon Dioxide 17 mmol/L (23-31); Chloride 106 mmol/L (98-107); Estimated GFR 6; Magnesium 2.2 mg/dL (1.6-2.6); Phosphorus 4.6 mg/dL (2.3-4.7); Sodium 134 mmol/L (136-145)
[2023-05-31 20:54] LABS: Glucose 52 mg/dL (83-110); Potassium 6.9 mmol/L (3.5-5.1)
[2023-05-31] MEDS: Heparin 5,000 UNITS/ML VIAL SC SCH (20:57)
[2023-05-31] MEDS ORDERED: Sodium Bicarbonate 150 MEQ in Dextrose 5% in Water 1,000 ML IV PRN (21:05)
[2023-05-31] MEDS ORDERED: hydrALAZINE 20 MG/ML VIAL SLOW IVP PRN (21:05)
[2023-06-01 00:23] LABS: Anion Gap 16 mmol/L (10-20); BUN (Urea Nitrogen) 76 mg/dL (9.8-20.1); Calc. Creatinine Clearance 4 mL/min (70-130); Calcium 8.9 mg/dL (7.8-10.44); Carbon Dioxide 19 mmol/L (23-31); Chloride 106 mmol/L (98-107); Estimated GFR 6; Glucose 148 mg/dL (83-110); Sodium 134 mmol/L (136-145)
[2023-06-01 00:28] LABS: Potassium 7.1 mmol/L (3.5-5.1)
[2023-06-01] MEDS ORDERED: Insulin Regular 300 UNITS/3 ML VIAL IVP SCH (00:45)
[2023-06-01] MEDS ORDERED: Furosemide 40 MG/4 ML VIAL SLOW IVP SCH (00:45)
[2023-06-01] MEDS ORDERED: Dextrose 50% Abboject 50 ML SYRINGE SLOW IVP SCH (00:46)
[2023-06-01] MEDS: Senokot S 8.6-50 MG TAB PO PRN (00:55)
[2023-06-01 04:12] LABS: #Monocytes 0.8 thou/uL (0.11-0.59); #Neutrophils 8.1 thou/uL (1.40-6.50); %Basophils 0.1 % (0.0-1.0); %Lymphocytes 22.4 % (21.0-51.0); %Monocytes 7.1 % (0.0-10.0); %Neutrophils 69.8 % (42.0-75.0); Hematocrit 26.3 % (36.0-47.0); Hemoglobin 8.5 g/dL (12.0-16.0); Mean Corpuscular HGB CONC 32.3 g/dL (32.0-36.0); Mean Corpuscular Hemoglobin 27.8 pg (27.0-31.0); Mean Corpuscular Volume 85.9 fl (78.0-98.0); Mean Platelet Volume 9.3 fL (7.4-10.4); Platelet Count 173 10x3/uL (130-400); RBC Distribution Width 16.5 % (11.5-14.5); Red Blood Cell (RBC) Count 3.06 mill/uL (4.20-5.40); White Blood Cell (WBC) Count 11.6 10x3/uL (4.8-10.8)
[2023-06-01 04:35] LABS: Anion Gap 18 mmol/L (10-20); BUN (Urea Nitrogen) 74 mg/dL (9.8-20.1); Calc. Creatinine Clearance 4 mL/min (70-130); Calcium 9.3 mg/dL (7.8-10.44); Carbon Dioxide 21 mmol/L (23-31); Chloride 105 mmol/L (98-107); Estimated GFR 6; Potassium 5.4 mmol/L (3.5-5.1); Sodium 139 mmol/L (136-145)
[2023-06-01 04:40] LABS: Glucose 31 mg/dL (83-110)
[2023-06-01 05:01] LABS: Hep B Core Total Ab Non-Reactive (NonReactive); Hep B Core Total Index 0.09 S/CO (0-0.79); Thyroid Stimulating Hormone 0.7755 uIU/mL (0.35-4.94)
[2023-06-01 05:02] LABS: HBSAg Index 0.23 S/CO (0-0.99); Hep B Surf Ag Non-Reactive S/CO (NonReactive)
[2023-06-01] MEDS ORDERED: Glucagon 1 MG/ML KIT IM PRN (05:49)
[2023-06-01] MEDS ORDERED: Dextrose 50% Abboject 50 ML SYRINGE SLOW IVP PRN (05:49)
[2023-06-01] MEDS ORDERED: Dextrose 5% in Water 1,000 ML IV PRN (05:49)
[2023-06-01 06:33] LABS: Glucose 130 mg/dL (83-110)
[2023-06-01 07:28] LABS: Hep C IgG Ab Non-Reactive S/CO (NonReactive); Hep C Index 0.11 S/CO (0-0.79)
[2023-06-01 08:14] LABS: HBSAB Concentration 35.26 mIU/mL; Hep B Surf AB Reactive (NonReactive)
[2023-06-01] MEDS ORDERED: Heparin 10,000 UNITS/ 10 ML VIAL ONE ×3 (08:23→13:07)
[2023-06-01] MEDS ORDERED: Bupivacaine PF 0.5% 30 ML VIAL ONE ×2 (08:23→13:07)
[2023-06-01] MEDS ORDERED: EPINEPHrine 1 MG/ML AMP ONE ×2 (08:23→13:07)
[2023-06-01] MEDS ORDERED: Lidocaine 2% PF 5 ML VIAL ONE ×2 (08:23→13:07)
[2023-06-01] MEDS ORDERED: fentaNYL PF 100 MCG/2 ML SYRINGE ONE (08:39)
[2023-06-01] MEDS ORDERED: Midazolam HCl 2 mg/2 ml Vial ONE ×2 (08:39→15:34)
[2023-06-01] MEDS ORDERED: CEFAZOLIN 2 GM VIAL ONE (08:40)
[2023-06-01] MEDS ORDERED: Sodium Chloride 0.9% 0 ML ONE (08:40)
[2023-06-01] MEDS: Amlodipine 5 MG TAB PO SCH (09:00)
[2023-06-01] MEDS: Heparin 5,000 UNITS/ML VIAL SC SCH ×2 (13:42→21:13)
[2023-06-01] MEDS ORDERED: fentaNYL 50 mcg/mL 1 mL Vial ONE (15:19)
[2023-06-01] MEDS ORDERED: Ketamine 50 MG/ML (10ML VIAL) ONE (15:35)
[2023-06-01] MEDS ORDERED: Ondansetron HCl/PF 4 MG/2 ML Vial IVP PRN (16:41)
[2023-06-01] MEDS: Acetaminophen 325 MG TAB PO PRN (21:12)
[2023-06-01] MEDS: Tuberculin PPD 0.1 ML VIAL I-DERMAL SCH (21:13)
[2023-06-01] MEDS ORDERED: fentaNYL 50 mcg/mL 1 mL Vial SLOW IVP SCH (23:15)
[2023-06-02] MEDS ORDERED: HYDROcodone/Acetaminophen 5/325 mg Tablet PO SCH (01:00)
[2023-06-02] MEDS ORDERED: traMADol HCl 50 MG TAB PO SCH (01:15)
[2023-06-02] MEDS ORDERED: hydrOXYzine 25 MG TAB PO SCH (01:15)
[2023-06-02 04:03] LABS: Mean Corpuscular Hemoglobin 28.2 pg (27.0-31.0); Red Blood Cell (RBC) Count 2.48 mill/uL (4.20-5.40)
[2023-06-02 04:04] LABS: Hematocrit 21.3 % (36.0-47.0); Mean Corpuscular HGB CONC 32.9 g/dL (32.0-36.0); Mean Corpuscular Volume 85.9 fl (78.0-98.0); Mean Platelet Volume 9.2 fL (7.4-10.4); Platelet Count 129 10x3/uL (130-400); RBC Distribution Width 16.1 % (11.5-14.5); White Blood Cell (WBC) Count 8.5 10x3/uL (4.8-10.8)
[2023-06-02 04:11] LABS: Hemoglobin A1c 5.1 % (4.0-6.0)
[2023-06-02 04:23] LABS: Anion Gap 9 mmol/L (10-20); BUN (Urea Nitrogen) 33 mg/dL (9.8-20.1); Calc. Creatinine Clearance 8 mL/min (70-130); Calcium 8.3 mg/dL (7.8-10.44); Carbon Dioxide 30 mmol/L (23-31); Chloride 101 mmol/L (98-107); Estimated GFR 12; Glucose 106 mg/dL (83-110); Potassium 4.1 mmol/L (3.5-5.1); Sodium 136 mmol/L (136-145)
[2023-06-02] MEDS: Acetaminophen 325 MG TAB PO PRN ×3 (05:44→21:27)
[2023-06-02 09:23] LABS: Potassium (VBG) 6.74 mmol/L (3.70-5.30)
[2023-06-02] MEDS ORDERED: EPOETIN ALFA-EPBX (ESRD) 10,000 UNITS/ML VIAL SC SCH (10:00)
[2023-06-02] MEDS: Amlodipine 5 MG TAB PO SCH (10:45)
[2023-06-02] MEDS: Heparin 5,000 UNITS/ML VIAL SC SCH ×2 (10:45→21:28)
[2023-06-02] MEDS: Tuberculin PPD 0.1 ML VIAL I-DERMAL SCH (11:36)
[2023-06-02] MEDS ORDERED: Epoetin (ESRD) 10,000 UNITS/ML VIAL SC SCH (12:00)
[2023-06-02 13:17] LABS: Hematocrit 23.3 % (36.0-47.0); Hemoglobin 7.7 g/dL (12.0-16.0)
[2023-06-03 03:45] LABS: Hemoglobin 7.2 g/dL (12.0-16.0)
[2023-06-03 03:47] LABS: Hematocrit 22.5 % (36.0-47.0); Mean Corpuscular Hemoglobin 27.6 pg (27.0-31.0); Mean Corpuscular Volume 86.2 fl (78.0-98.0); Mean Platelet Volume 9.5 fL (7.4-10.4); Platelet Count 130 10x3/uL (130-400); RBC Distribution Width 15.9 % (11.5-14.5); Red Blood Cell (RBC) Count 2.61 mill/uL (4.20-5.40); White Blood Cell (WBC) Count 6.6 10x3/uL (4.8-10.8)
[2023-06-03 04:06] LABS: Anion Gap 12 mmol/L (10-20); BUN (Urea Nitrogen) 44 mg/dL (9.8-20.1); Calc. Creatinine Clearance 6 mL/min (70-130); Calcium 8.3 mg/dL (7.8-10.44); Carbon Dioxide 26 mmol/L (23-31); Chloride 102 mmol/L (98-107); Estimated GFR 9; Glucose 77 mg/dL (83-110); Potassium 4.9 mmol/L (3.5-5.1); Sodium 135 mmol/L (136-145)
[2023-06-03] MEDS: Tuberculin PPD 0.1 ML VIAL I-DERMAL SCH (06:27)
[2023-06-03] MEDS ORDERED: Heparin 10,000 UNITS/ 10 ML VIAL ONE (08:30)
[2023-06-03 08:49] VITALS: BMI 23.2
[2023-06-03] MEDS ORDERED: EPOETIN ALFA-EPBX (ESRD) 10,000 UNITS/ML VIAL IVP SCH (09:00)
[2023-06-03] MEDS ORDERED: READ PPD TEST SITE PO SCH (09:00)
[2023-06-03] MEDS: Amlodipine 5 MG TAB PO SCH (10:14)
[2023-06-03] MEDS: Heparin 5,000 UNITS/ML VIAL SC SCH ×2 (10:14→21:14)
[2023-06-03] MEDS: Acetaminophen 325 MG TAB PO PRN ×2 (13:18→21:13)
[2023-06-03] MEDS: Epoetin (ESRD) 10,000 UNITS/ML VIAL IVP SCH (17:43)
[2023-06-03] MEDS ORDERED: Melatonin 3 MG TAB PO SCH (22:15)
[2023-06-04] MEDS: Tuberculin PPD 0.1 ML VIAL I-DERMAL SCH (05:53)
[2023-06-04] MEDS: Acetaminophen 325 MG TAB PO PRN ×2 (06:12→20:24)
[2023-06-04] MEDS: Amlodipine 5 MG TAB PO SCH (08:02)
[2023-06-04] MEDS: Heparin 5,000 UNITS/ML VIAL SC SCH ×2 (08:02→20:23)
[2023-06-04] MEDS ORDERED: traMADol HCl 50 MG TAB PO SCH (09:00)
[2023-06-04] MEDS: Senokot S 8.6-50 MG TAB PO PRN (09:45)
[2023-06-04 09:53] LABS: Hematocrit 24.4 % (36.0-47.0); Hemoglobin 7.9 g/dL (12.0-16.0)
[2023-06-04] MEDS: hydrALAZINE 25 MG TAB PO SCH ×2 (10:02→20:23)
[2023-06-04] MEDS ORDERED: Docusate 100 MG CAP PO PRN (12:38)
[2023-06-04] MEDS ORDERED: Melatonin 3 MG TAB PO PRN (12:38)
[2023-06-04] MEDS ORDERED: Polyethylene Glycol 3350 17 GM Packet PO SCH (13:00)
[2023-06-04] MEDS ORDERED: Docusate 100 MG CAP PO SCH (13:00)
[2023-06-05 05:14] LABS: Hematocrit 22.8 % (36.0-47.0); Hemoglobin 7.4 g/dL (12.0-16.0); Mean Corpuscular HGB CONC 32.5 g/dL (32.0-36.0); Mean Corpuscular Volume 86.4 fl (78.0-98.0); Mean Platelet Volume 10.9 fL (7.4-10.4); Platelet Count 155 10x3/uL (130-400); Red Blood Cell (RBC) Count 2.64 mill/uL (4.20-5.40)
[2023-06-05 05:33] LABS: Anion Gap 16 mmol/L (10-20); BUN (Urea Nitrogen) 52 mg/dL (9.8-20.1); Calc. Creatinine Clearance 5 mL/min (70-130); Calcium 8.9 mg/dL (7.8-10.44); Carbon Dioxide 22 mmol/L (23-31); Chloride 103 mmol/L (98-107); Estimated GFR 8; Glucose 77 mg/dL (83-110); Potassium 4.6 mmol/L (3.5-5.1); Sodium 136 mmol/L (136-145)
[2023-06-05] MEDS: Acetaminophen 325 MG TAB PO PRN ×2 (09:45→17:28)
[2023-06-05] MEDS: Amlodipine 5 MG TAB PO SCH (09:45)
[2023-06-05] MEDS: hydrALAZINE 25 MG TAB PO SCH ×3 (09:45→21:07)
[2023-06-05] MEDS: Heparin 5,000 UNITS/ML VIAL SC SCH ×2 (09:45→21:08)
[2023-06-05 21:08] VITALS: BP 143/68
[2023-06-06] MEDS: Acetaminophen 325 MG TAB PO PRN (05:53)
[2023-06-06] MEDS: Heparin 5,000 UNITS/ML VIAL SC SCH (09:14)
[2023-06-06] MEDS: hydrALAZINE 25 MG TAB PO SCH (09:14)
[2023-06-06] MEDS: Amlodipine 5 MG TAB PO SCH (09:14)
[2023-06-06 11:29] VITALS: TEMP 98.4
[2023-06-06] MEDS: Epoetin (ESRD) 10,000 UNITS/ML VIAL IVP SCH (12:58)
== END 2023-06-06 13:54 | DRG 640 ==
LOC: IMCU/EMU 19:24
PROVIDERS: ADMIT Hospitalist; ATTEND Hospitalist
PROC: 0JH63XZ Insertion of Tunneled Vascular Access Device into Chest Subcutaneous Tissue and Fascia, Percutaneous Approach (ICD-10-PCS; principal; 2023-06-01)
PROC: 02HV33Z Insertion of Infusion Device into Superior Vena Cava, Percutaneous Approach (ICD-10-PCS; 2023-06-01)
PROC: B5181ZA Fluoroscopy of Superior Vena Cava using Low Osmolar Contrast, Guidance (ICD-10-PCS; 2023-06-01)
PROC: 5A1D70Z Performance of Urinary Filtration, Intermittent, Less than 6 Hours Per Day (ICD-10-PCS; 2023-06-01)
PROC: 5A1D70Z Performance of Urinary Filtration, Intermittent, Less than 6 Hours Per Day (ICD-10-PCS; 2023-06-03)
PROC: 3E033XZ Introduction of Vasopressor into Peripheral Vein, Percutaneous Approach (ICD-10-PCS; 2023-06-03)
DX: E87.5 Hyperkalemia (principal); N18.6 End stage renal disease; I12.0 Hypertensive chronic kidney disease with stage 5 chronic kidney disease or end stage renal disease; F41.9 Anxiety disorder, unspecified; M10.9 Gout, unspecified; E16.2 Hypoglycemia, unspecified; Z79.899 Other long term (current) drug therapy; Z90.710 Acquired absence of both cervix and uterus; Z88.0 Allergy status to penicillin; E87.20 Acidosis, unspecified; R73.9 Hyperglycemia, unspecified; R33.9 Retention of urine, unspecified; Z51.5 Encounter for palliative care; F03.90 Unspecified dementia, unspecified severity, without behavioral disturbance, psychotic disturbance, mood disturbance, and anxiety; D63.1 Anemia in chronic kidney disease; K21.9 Gastro-esophageal reflux disease without esophagitis; E87.1 Hypo-osmolality and hyponatremia
CPT/HCPCS: 36415; 36416; 71045; 76770; 80048; 82533; 82805; 83036; 83735; 84100; 84443; 85014; 85018; 85025; 85027; 86580; 86704; 86850; 86900; 86901; 90935; 93005; 93010; C1751; C1752; G0257; J0171; J1642; J1644; J1815; J1940; J2001; J2250; J2405; J3010; J3490; J7999; Q4081; S0020

== ENCOUNTER 2023-08-01 03:32 | Inpatient (IN) | payer MEDICARE, MEDICAID ==
[2023-08-01 06:34] VITALS: BMI 24.7
[2023-08-01] MEDS ORDERED: Morphine 4 MG/ML VIAL SLOW IVP PRN (06:37)
[2023-08-01] MEDS ORDERED: Ondansetron ODT 4 MG TAB PO PRN (06:38)
[2023-08-01] MEDS ORDERED: Nitroglycerin 0.4 MG TAB (25 Tab Bottle) SL PRN (06:38)
[2023-08-01] MEDS ORDERED: Ondansetron PF 4 MG/2 ML Vial IVP PRN (06:38)
[2023-08-01] MEDS ORDERED: Acetaminophen 325 MG TAB PO PRN (06:38)
[2023-08-01] MEDS ORDERED: Acetaminophen 650 MG Suppository PR PRN (06:38)
[2023-08-01] MEDS ORDERED: LOKELMA 10 GM PACKET PO SCH (09:00)
[2023-08-01] MEDS ORDERED: Heparin 5,000 UNITS/ML VIAL SC SCH (09:00)
[2023-08-01] MEDS: Allopurinol 100 MG TAB PO SCH (10:31)
[2023-08-01] MEDS: Citalopram 10 MG TAB PO SCH (10:31)
[2023-08-01] MEDS: Aspirin Chewable 81 MG TAB PO SCH (10:31)
[2023-08-01] MEDS: Senokot 8.6 MG TAB PO SCH ×2 (10:32→22:33)
[2023-08-01] MEDS ORDERED: Epoetin (ESRD) 10,000 UNITS/ML VIAL IVP SCH (12:00)
[2023-08-01 14:32] LABS: Troponin I 0.021 ng/mL (< 0.028)
[2023-08-01 17:29] LABS: Troponin I 0.017 ng/mL (< 0.028)
[2023-08-01] MEDS ORDERED: Latanoprost 0.005% Ophth Soln 2.5 ml Bottle EA EYE SCH (21:00)
[2023-08-01] MEDS: Heparin 5,000 UNITS/ML VIAL SC SCH (22:31)
[2023-08-02 04:08] LABS: #Monocytes 0.7 thou/uL (0.11-0.59); #Neutrophils 8.5 thou/uL (1.40-6.50); %Basophils 0.1 % (0.0-1.0); %Monocytes 6.9 % (0.0-10.0); Hematocrit 28.2 % (36.0-47.0); Hemoglobin 9.2 g/dL (12.0-16.0); Mean Corpuscular HGB CONC 32.6 g/dL (32.0-36.0); Mean Corpuscular Hemoglobin 29.6 pg (27.0-31.0); Mean Corpuscular Volume 90.7 fl (78.0-98.0); Mean Platelet Volume 9.9 fL (7.4-10.4); Platelet Count 185 10x3/uL (130-400); RBC Distribution Width 15.7 % (11.5-14.5); Red Blood Cell (RBC) Count 3.11 mill/uL (4.20-5.40); White Blood Cell (WBC) Count 10.2 10x3/uL (4.8-10.8)
[2023-08-02 04:38] LABS: ALT (SGPT) Less than 7 U/L (8-55); AST (SGOT) 9 U/L (5-34); Albumin 3.7 g/dL (3.4-4.8); Alkaline Phosphatase 60 U/L (40-110); Anion Gap 17 mmol/L (10-20); BUN (Urea Nitrogen) 61 mg/dL (9.8-20.1); Bilirubin, Total 0.3 mg/dL (0.2-1.2); Calc. Creatinine Clearance 4 mL/min (70-130); Calcium 9.5 mg/dL (7.8-10.44); Carbon Dioxide 23 mmol/L (23-31); Chloride 99 mmol/L (98-107); Estimated GFR 6; Globulin 2.6 g/dL (2.4-3.5); Glucose 77 mg/dL (83-110); Protein, Total 6.3 g/dL (5.8-8.1); Sodium 133 mmol/L (136-145)
[2023-08-02] MEDS ORDERED: Linaclotide [Linzess] 290 MCG Cap PO SCH (07:30)
[2023-08-02] MEDS: Senokot 8.6 MG TAB PO SCH (08:24)
[2023-08-02] MEDS: Heparin 5,000 UNITS/ML VIAL SC SCH ×2 (08:24→16:24)
[2023-08-02] MEDS: Aspirin Chewable 81 MG TAB PO SCH (08:24)
[2023-08-02] MEDS: Allopurinol 100 MG TAB PO SCH (08:24)
[2023-08-02] MEDS: Citalopram 10 MG TAB PO SCH (08:24)
[2023-08-02] MEDS ORDERED: Heparin 10,000 UNITS/ 10 ML VIAL ONE (08:35)
[2023-08-02] MEDS ORDERED: EPOETIN ALFA-EPBX (ESRD) 10,000 UNITS/ML VIAL IVP SCH (11:00)
[2023-08-02 13:42] VITALS: BP 133/79; TEMP 98.5
== END 2023-08-02 16:30 | DRG 205 ==
LOC: 2NO 06:20 → OBSVTOIN 08-02 09:48
PROVIDERS: ADMIT Student in an Organized Health Care Education/Training Program; ATTEND Internal Medicine
PROC: 5A1D70Z Performance of Urinary Filtration, Intermittent, Less than 6 Hours Per Day (ICD-10-PCS; principal; 2023-08-02)
DX: M94.0 Chondrocostal junction syndrome [Tietze] (principal); N18.6 End stage renal disease; I12.0 Hypertensive chronic kidney disease with stage 5 chronic kidney disease or end stage renal disease; E87.1 Hypo-osmolality and hyponatremia; K21.9 Gastro-esophageal reflux disease without esophagitis; E87.5 Hyperkalemia; Z99.2 Dependence on renal dialysis; F03.90 Unspecified dementia, unspecified severity, without behavioral disturbance, psychotic disturbance, mood disturbance, and anxiety; F41.9 Anxiety disorder, unspecified; D63.1 Anemia in chronic kidney disease; R13.10 Dysphagia, unspecified; K58.1 Irritable bowel syndrome with constipation; R33.9 Retention of urine, unspecified; M10.9 Gout, unspecified; G62.9 Polyneuropathy, unspecified; M62.50 Muscle wasting and atrophy, not elsewhere classified, unspecified site; R79.1 Abnormal coagulation profile; Z88.0 Allergy status to penicillin; Z88.5 Allergy status to narcotic agent; Z88.8 Allergy status to other drugs, medicaments and biological substances; Z79.899 Other long term (current) drug therapy; Z90.49 Acquired absence of other specified parts of digestive tract; Z90.710 Acquired absence of both cervix and uterus; Z98.890 Other specified postprocedural states
CPT/HCPCS: 36415; 78451; 80053; 85025; 94760; 96372; 96374; A9540; G0378; J1644; J1650; J2270

== ENCOUNTER 2023-08-09 13:05 | Observation (INO) | payer MEDICARE, MEDICAID ==
[~2023-08-09 13:05] MED LIST: Heparin 10,000 UNITS/ 10 ML VIAL ONE
[2023-08-09 15:06] LABS: #Monocytes 0.6 thou/uL (0.11-0.59); #Neutrophils 5.6 thou/uL (1.40-6.50); %Basophils 0.1 % (0.0-1.0); %Lymphocytes 11.5 % (21.0-51.0); %Monocytes 8.2 % (0.0-10.0); %Neutrophils 78.5 % (42.0-75.0); Hematocrit 28.8 % (36.0-47.0); Hemoglobin 9.5 g/dL (12.0-16.0); Mean Corpuscular Hemoglobin 29.3 pg (27.0-31.0); Mean Corpuscular Volume 88.9 fl (78.0-98.0); Mean Platelet Volume 9.7 fL (7.4-10.4); Platelet Count 226 10x3/uL (130-400); RBC Distribution Width 15.6 % (11.5-14.5); Red Blood Cell (RBC) Count 3.24 mill/uL (4.20-5.40); White Blood Cell (WBC) Count 7.1 10x3/uL (4.8-10.8)
[2023-08-09 15:33] LABS: ALT (SGPT) Less than 7 U/L (8-55); AST (SGOT) 10 U/L (5-34); Albumin 3.9 g/dL (3.4-4.8); Alkaline Phosphatase 63 U/L (40-110); Anion Gap 20 mmol/L (10-20); BUN (Urea Nitrogen) 81 mg/dL (9.8-20.1); Bilirubin, Total 0.4 mg/dL (0.2-1.2); Calc. Creatinine Clearance 0 mL/min (70-130); Calcium 9.6 mg/dL (7.8-10.44); Carbon Dioxide 21 mmol/L (23-31); Chloride 102 mmol/L (98-107); Estimated GFR 5; Globulin 2.7 g/dL (2.4-3.5); Glucose 75 mg/dL (83-110); Protein, Total 6.6 g/dL (5.8-8.1); Sodium 137 mmol/L (136-145)
[2023-08-09 15:46] LABS: Potassium 6.1 mmol/L (3.5-5.1)
[2023-08-09 15:48] LABS: Troponin I 0.032 ng/mL (< 0.028)
[2023-08-09] MEDS ORDERED: hydrALAZINE 20 MG/ML VIAL ONE (16:09)
[2023-08-09] MEDS ORDERED: Insulin Regular 300 UNITS/3 ML VIAL ONE (16:10)
[2023-08-09] MEDS ORDERED: CALCIUM GLUC 1 GM/NS 50 ML BAG ONE (16:18)
[2023-08-09] MEDS ORDERED: LOKELMA 10 GM PACKET PO SCH (17:15)
[2023-08-09] MEDS ORDERED: Acetaminophen 325 MG TAB PO PRN (18:39)
[2023-08-09] MEDS ORDERED: Ondansetron ODT 4 MG TAB PO PRN (18:39)
[2023-08-09] MEDS ORDERED: Ondansetron PF 4 MG/2 ML Vial IVP PRN (18:39)
[2023-08-09] MEDS ORDERED: EPOETIN ALFA-EPBX (ESRD) 10,000 UNITS/ML VIAL IVP SCH (20:00)
[2023-08-09] MEDS ORDERED: Latanoprost 0.005% Ophth Soln 2.5 ml Bottle EA EYE SCH (21:00)
[2023-08-09] MEDS: Heparin 5,000 UNITS/ML VIAL SC SCH (23:44)
[2023-08-09] MEDS: Senokot 8.6 MG TAB PO SCH (23:44)
[2023-08-10] MEDS ORDERED: Bisacodyl 10 MG SUPP PR SCH (01:00)
[2023-08-10 04:40] LABS: #Monocytes 0.6 thou/uL (0.11-0.59); #Neutrophils 4.6 thou/uL (1.40-6.50); %Basophils 0.3 % (0.0-1.0); %Lymphocytes 13.1 % (21.0-51.0); %Monocytes 9.4 % (0.0-10.0); %Neutrophils 74.8 % (42.0-75.0); Hematocrit 27.5 % (36.0-47.0); Hemoglobin 9.1 g/dL (12.0-16.0); Mean Corpuscular HGB CONC 33.1 g/dL (32.0-36.0); Mean Corpuscular Hemoglobin 28.5 pg (27.0-31.0); Mean Platelet Volume 9.8 fL (7.4-10.4); Platelet Count 241 10x3/uL (130-400); RBC Distribution Width 15.2 % (11.5-14.5); Red Blood Cell (RBC) Count 3.19 mill/uL (4.20-5.40); White Blood Cell (WBC) Count 6.2 10x3/uL (4.8-10.8)
[2023-08-10 04:50] LABS: Mean Corpuscular Volume 86.2 fl (78.0-98.0)
[2023-08-10 06:56] LABS: Anion Gap 16 mmol/L (10-20); BUN (Urea Nitrogen) 24 mg/dL (9.8-20.1); Calc. Creatinine Clearance 8 mL/min (70-130); Calcium 8.9 mg/dL (7.8-10.44); Carbon Dioxide 24 mmol/L (23-31); Chloride 101 mmol/L (98-107); Estimated GFR 13; Glucose 91 mg/dL (83-110); Sodium 137 mmol/L (136-145)
[2023-08-10] MEDS ORDERED: Linaclotide [Linzess] 290 MCG Capsule PO SCH (07:30)
[2023-08-10 08:33] VITALS: BMI 25.3
[2023-08-10] MEDS ORDERED: Amlodipine 10 MG TAB PO SCH (09:00)
[2023-08-10] MEDS ORDERED: Citalopram 10 MG TAB PO SCH (09:00)
[2023-08-10] MEDS ORDERED: Allopurinol 100 MG TAB PO SCH (09:00)
[2023-08-10] MEDS: Senokot 8.6 MG TAB PO SCH (09:45)
[2023-08-10] MEDS: hydrALAZINE 25 MG TAB PO SCH ×2 (09:45→16:03)
[2023-08-10] MEDS: Heparin 5,000 UNITS/ML VIAL SC SCH ×2 (09:49→16:04)
[2023-08-10 15:40] VITALS: BP 127/72; TEMP 97.7
== END 2023-08-10 17:33 ==
LOC: ERS 13:05 → ERHOLD 17:17 → 2NO 19:51
PROVIDERS: ADMIT Internal Medicine; ATTEND Internal Medicine
DX: E87.5 Hyperkalemia (principal); I12.0 Hypertensive chronic kidney disease with stage 5 chronic kidney disease or end stage renal disease; N18.6 End stage renal disease; D63.1 Anemia in chronic kidney disease; N39.0 Urinary tract infection, site not specified; K59.09 Other constipation; Z88.0 Allergy status to penicillin; Z88.5 Allergy status to narcotic agent; Z88.6 Allergy status to analgesic agent; Z99.2 Dependence on renal dialysis; Z90.710 Acquired absence of both cervix and uterus; Z90.49 Acquired absence of other specified parts of digestive tract; E87.70 Fluid overload, unspecified; Z79.899 Other long term (current) drug therapy
CPT/HCPCS: 71045; 80048; 80053; 83880; 84484; 85025 ×2; 93005; 96372 ×2; G0378 ×3; J0360; J0613; 36415; 90935; 96365; 96375; G0257; J1644; J1815

== ENCOUNTER 2023-11-28 13:10 | Emergency (ER) | payer MEDICAID, MEDICARE ==
[2023-11-28 14:22] LABS: Bacteria/HPF 4+ HPF (None Seen); Bilirubin Negative (Negative); Blood, Urine 1+ (Negative); CAUTI Indications for Culture Pelvic or flank pain; Clarity Extra Turbid (Clear); Glucose, Urine (Dipstick) Normal (Negative); Ketone, Urine Negative (Negative); Leukocyte 500 Leu/uL (Negative); Nitrite Negative (Negative); Protein, Urine (Dipstick) 100 mg/dL (Neg-Trace); RBC/HPF 0-3 HPF (0-3); Squamous Epithelial None Seen HPF (0-3); Urobilinogen Normal mg/dL (Less than 2); WBC/HPF Greater than 50 HPF (0-3); Yeast-Budding 2+ HPF (None Seen)
[2023-11-28 14:27] LABS: Urine Culture Reflex Yes Yes
[2023-11-28 14:58] LABS: #Monocytes 0.9 thou/uL (0.11-0.59); #Neutrophils 9.3 thou/uL (1.40-6.50); %Basophils 0.1 % (0.0-1.0); %Lymphocytes 10.1 % (21.0-51.0); Hematocrit 40.2 % (36.0-47.0); Hemoglobin 13.1 g/dL (12.0-16.0); Mean Corpuscular HGB CONC 32.6 g/dL (32.0-36.0); Mean Corpuscular Hemoglobin 29.5 pg (27.0-31.0); Mean Corpuscular Volume 90.5 fl (78.0-98.0); Mean Platelet Volume 8.9 fL (7.4-10.4); Platelet Count 285 10x3/uL (130-400); RBC Distribution Width 19.6 % (11.5-14.5); Red Blood Cell (RBC) Count 4.44 mill/uL (4.20-5.40); White Blood Cell (WBC) Count 11.4 10x3/uL (4.8-10.8)
[2023-11-28] MEDS ORDERED: cefTRIAXone (ROCEPHIN) 2 GM VIAL ONE (15:12)
[2023-11-28] MEDS ORDERED: Sodium Chloride 0.9% 100 ML ONE (15:12)
[2023-11-28 15:26] LABS: ALT (SGPT) 7 U/L (8-55); AST (SGOT) 12 U/L (5-34); Albumin 3.7 g/dL (3.4-4.8); Alkaline Phosphatase 67 U/L (40-110); Anion Gap 19 mmol/L (10-20); BUN (Urea Nitrogen) 51 mg/dL (9.8-20.1); Bilirubin, Total 0.5 mg/dL (0.2-1.2); Calc. Creatinine Clearance 0 mL/min (70-130); Calcium 9.6 mg/dL (7.8-10.44); Carbon Dioxide 21 mmol/L (23-31); Chloride 102 mmol/L (98-107); Estimated GFR 6; Globulin 3.4 g/dL (2.4-3.5); Glucose 83 mg/dL (83-110); Lipase 25 U/L (8-78); Potassium 4.6 mmol/L (3.5-5.1); Protein, Total 7.1 g/dL (5.8-8.1); Sodium 137 mmol/L (136-145)
[2023-11-28] MEDS ORDERED: traMADol HCl 50 MG TAB ONE (17:13)
== END 2023-11-28 20:10 | disposition home or self-care (01) ==
LOC: ERS 13:10
DX: N10 Acute pyelonephritis (principal); E87.1 Hypo-osmolality and hyponatremia; I12.0 Hypertensive chronic kidney disease with stage 5 chronic kidney disease or end stage renal disease; N18.6 End stage renal disease; D63.1 Anemia in chronic kidney disease; R13.10 Dysphagia, unspecified; K21.9 Gastro-esophageal reflux disease without esophagitis; H40.9 Unspecified glaucoma; R53.1 Weakness; R53.81 Other malaise; G62.9 Polyneuropathy, unspecified; M10.09 Idiopathic gout, multiple sites; K58.1 Irritable bowel syndrome with constipation; Z79.899 Other long term (current) drug therapy
CPT/HCPCS: 36415; 51701; 74176; 80053; 81001; 83605; 83690; 85025; 87077; 87086; 96365; J0696; J3490

== ENCOUNTER 2023-12-28 | Observation (INO) | payer MEDICARE | END 2023-12-29 19:08 | PROVIDERS: ADMIT Internal Medicine | DX: I12.0 Hypertensive chronic kidney disease with stage 5 chronic kidney disease or end stage renal disease (principal); N18.6 End stage renal disease; D63.1 Anemia in chronic kidney disease; Z99.2 Dependence on renal dialysis; S42.202A Unspecified fracture of upper end of left humerus, initial encounter for closed fracture; I77.0 Arteriovenous fistula, acquired; K44.9 Diaphragmatic hernia without obstruction or gangrene; F03.90 Unspecified dementia, unspecified severity, without behavioral disturbance, psychotic disturbance, mood disturbance, and anxiety; G62.9 Polyneuropathy, unspecified; K58.1 Irritable bowel syndrome with constipation; E87.1 Hypo-osmolality and hyponatremia; R33.9 Retention of urine, unspecified; E87.5 Hyperkalemia; Z88.5 Allergy status to narcotic agent; Z88.0 Allergy status to penicillin; Z88.6 Allergy status to analgesic agent; Z79.899 Other long term (current) drug therapy; Z90.710 Acquired absence of both cervix and uterus; Z98.890 Other specified postprocedural states; Z90.49 Acquired absence of other specified parts of digestive tract; X58.XXXA Exposure to other specified factors, initial encounter ==

== ENCOUNTER 2024-10-16 02:10 | Emergency (ER) | payer MEDICARE, OTHER ==
[2024-10-16] MEDS ORDERED: Acetaminophen 500 MG TAB ONE (02:33)
[2024-10-16 02:52] LABS: #Basophils Less than 0.03 10x3/uL (0.0-0.2); #Eosinophils Less than 0.03 10x3/uL (0.0-0.7); %Basophils 0.1 % (0.0-1.0); %Lymphocytes 7.8 % (21.0-51.0); %Monocytes 8.8 % (0.0-10.0); %Neutrophils 82.7 % (42.0-75.0); Hematocrit 34.9 % (36.0-47.0); Hemoglobin 11.6 g/dL (12.0-16.0); Mean Corpuscular HGB CONC 33.2 g/dL (32.0-36.0); Mean Corpuscular Hemoglobin 28.2 pg (27.0-31.0); Mean Corpuscular Volume 84.7 fL (78.0-98.0); Mean Platelet Volume 9.1 fL (7.4-10.4); Platelet Count 175 10x3/uL (130-400); RBC Distribution Width 19.9 % (11.5-14.5); Red Blood Cell (RBC) Count 4.12 mill/uL (4.20-5.40)
[2024-10-16 03:18] LABS: ALT (SGPT) 12 U/L (8-55); AST (SGOT) 17 U/L (5-34); Albumin 3.3 g/dL (3.4-4.8); Alkaline Phosphatase 74 U/L (40-110); Anion Gap 24 mmol/L (10-20); BUN (Urea Nitrogen) 48 mg/dL (9.8-20.1); Bilirubin, Total 0.5 mg/dL (0.2-1.2); Calc. Creatinine Clearance 0 mL/min (70-130); Calcium 9.5 mg/dL (7.8-10.44); Carbon Dioxide 21 mmol/L (23-31); Chloride 98 mmol/L (98-107); Estimated GFR 6; Globulin 3.5 g/dL (2.4-3.5); Glucose 89 mg/dL (83-110); Lipase 17 U/L (8-78); Potassium 4.5 mmol/L (3.5-5.1); Protein, Total 6.8 g/dL (5.8-8.1); Sodium 138 mmol/L (136-145)
[2024-10-16 03:25] LABS: Troponin I 0.042 ng/mL (< 0.028)
[2024-10-16 04:35] LABS: Bacteria/HPF 3+ HPF (None Seen); Bilirubin Negative (Negative); Blood, Urine 1+ (Negative); CAUTI Indications for Culture Dysuria,urgency,freq; Clarity Turbid (Clear); Glucose, Urine (Dipstick) Normal (Negative); Ketone, Urine Negative (Negative); Leukocyte 500 Leu/uL (Negative); Nitrite Negative (Negative); Protein, Urine (Dipstick) 300 mg/dL (Neg-Trace); Squamous Epithelial 0-3 HPF (0-3); Urobilinogen Normal mg/dL (Less than 2); WBC/HPF Greater than 50 HPF (0-3); pH, Urine 7.5 (5.0-9.0)
[2024-10-16 04:37] LABS: Urine Culture Reflex Yes Yes
[2024-10-16] MEDS ORDERED: cefTRIAXone (ROCEPHIN) 1 GM VIAL ONE (05:17)
[2024-10-16 06:44] LABS: Troponin I 0.045 ng/mL (< 0.028)
== END 2024-10-16 10:37 | disposition home or self-care (01) ==
LOC: ERS 02:10
DX: N39.0 Urinary tract infection, site not specified (principal); I12.9 Hypertensive chronic kidney disease with stage 1 through stage 4 chronic kidney disease, or unspecified chronic kidney disease; N18.6 End stage renal disease; Z79.899 Other long term (current) drug therapy
CPT/HCPCS: 51701; 71045; 81001; 83690; 84484 ×2; 87077; 87086; 87186; 87428; 93005; 94760; 96365; 99285; J0696; 36415; 80053; 84443; 85025

== ENCOUNTER 2024-11-08 04:38 | Inpatient (IN) | payer MEDICARE, OTHER ==
[2024-11-08] MEDS ORDERED: Senokot S 8.6-50 MG TAB PO PRN (08:08)
[2024-11-08] MEDS ORDERED: Heparin 10,000 UNITS/ 10 ML VIAL ONE (08:42)
[2024-11-08] MEDS ORDERED: Ondansetron PF 4 MG/2 ML Vial IVP PRN (08:52)
[2024-11-08 08:58] LABS: #Basophils Less than 0.03 10x3/uL (0.0-0.2); #Eosinophils Less than 0.03 10x3/uL (0.0-0.7); %Basophils 0.1 % (0.0-1.0); %Lymphocytes 4.7 % (21.0-51.0); %Monocytes 6.7 % (0.0-10.0); %Neutrophils 87.7 % (42.0-75.0); Hematocrit 35.8 % (36.0-47.0); Hemoglobin 11.6 g/dL (12.0-16.0); Mean Corpuscular HGB CONC 32.4 g/dL (32.0-36.0); Mean Corpuscular Hemoglobin 28.2 pg (27.0-31.0); Mean Corpuscular Volume 86.9 fL (78.0-98.0); Mean Platelet Volume 8.7 fL (7.4-10.4); Platelet Count 160 10x3/uL (130-400); RBC Distribution Width 19.4 % (11.5-14.5); Red Blood Cell (RBC) Count 4.12 mill/uL (4.20-5.40)
[2024-11-08] MEDS ORDERED: Meropenem 1 GM in Sodium Chloride 0.9% 100 ML IVPB SCH ×2 (09:02→22:00)
[2024-11-08 09:15] LABS: ALT (SGPT) 53 U/L (Less than 34); AST (SGOT) 36 U/L (11-34); Alkaline Phosphatase 121 U/L (40-110); Anion Gap 19 mmol/L (10-20); BUN (Urea Nitrogen) 51 mg/dL (9.8-20.1); Bilirubin, Total 0.6 mg/dL (0.3-1.2); Calc. Creatinine Clearance 4 mL/min (70-130); Calcium 9.6 mg/dL (7.8-10.44); Carbon Dioxide 23 mmol/L (23-31); Chloride 104 mmol/L (98-107); Estimated GFR 5; Globulin 3.6 g/dL (2.4-3.5); Glucose 86 mg/dL (83-110); Potassium 4.9 mmol/L (3.5-5.1); Protein, Total 6.6 g/dL (5.8-8.1); Sodium 141 mmol/L (136-145)
[2024-11-08] MEDS ORDERED: traMADol HCl 50 MG TAB PO PRN (11:30)
[2024-11-08 12:04] VITALS: BMI 17.3
[2024-11-08] MEDS: busPIRone HCl 5 MG TAB PO SCH (15:20)
[2024-11-08] MEDS: hydrALAZINE 25 MG TAB PO SCH (15:52)
[2024-11-08] MEDS: Meropenem 1 GM in Sodium Chloride 0.9% 100 ML IVPB SCH (16:00)
[2024-11-08] MEDS: Latanoprost 0.005% Ophth Soln 2.5 ml Bottle EA EYE SCH (21:59)
[2024-11-08] MEDS: Citalopram 20 MG TAB PO SCH (21:59)
[2024-11-09 04:22] LABS: #Basophils Less than 0.03 10x3/uL (0.0-0.2); #Eosinophils Less than 0.03 10x3/uL (0.0-0.7); %Basophils 0.1 % (0.0-1.0); %Lymphocytes 10.2 % (21.0-51.0); %Monocytes 9.4 % (0.0-10.0); %Neutrophils 79.9 % (42.0-75.0); Hematocrit 39.4 % (36.0-47.0); Hemoglobin 12.8 g/dL (12.0-16.0); Mean Corpuscular HGB CONC 32.5 g/dL (32.0-36.0); Mean Corpuscular Hemoglobin 27.8 pg (27.0-31.0); Mean Corpuscular Volume 85.7 fL (78.0-98.0); Mean Platelet Volume 9.5 fL (7.4-10.4); Platelet Count 168 10x3/uL (130-400); RBC Distribution Width 19.2 % (11.5-14.5)
[2024-11-09] MEDS: Meropenem 500 MG in Sodium Chloride 0.9% 100 ML IVPB SCH (04:43)
[2024-11-09] MEDS: traMADol HCl 50 MG TAB PO PRN (05:02)
[2024-11-09 05:20] LABS: Anion Gap 17 mmol/L (10-20); BUN (Urea Nitrogen) 15 mg/dL (9.8-20.1); Calc. Creatinine Clearance 7 mL/min (70-130); Calcium 9.5 mg/dL (7.8-10.44); Carbon Dioxide 26 mmol/L (23-31); Chloride 99 mmol/L (98-107); Estimated GFR 11; Glucose 67 mg/dL (83-110); Potassium 3.7 mmol/L (3.5-5.1); Sodium 138 mmol/L (136-145)
[2024-11-09] MEDS: Amlodipine 10 MG TAB PO SCH (10:10)
[2024-11-09] MEDS: Allopurinol 100 MG TAB PO SCH (10:10)
[2024-11-09] MEDS: Acetaminophen 325 MG TAB PO PRN (10:11)
[2024-11-09] MEDS: Polyethylene Glycol 3350 17 GM Packet PER TUBE SCH (10:12)
[2024-11-09] MEDS: Heparin 5,000 UNITS/ML VIAL SC SCH (10:14)
[2024-11-10 05:55] LABS: #Basophils Less than 0.03 10x3/uL (0.0-0.2); #Eosinophils Less than 0.03 10x3/uL (0.0-0.7); %Basophils 0.1 % (0.0-1.0); %Lymphocytes 13.5 % (21.0-51.0); %Monocytes 10.4 % (0.0-10.0); Hematocrit 40.8 % (36.0-47.0); Hemoglobin 13.3 g/dL (12.0-16.0); Mean Corpuscular HGB CONC 32.6 g/dL (32.0-36.0); Mean Corpuscular Hemoglobin 27.9 pg (27.0-31.0); Mean Corpuscular Volume 85.7 fL (78.0-98.0); Mean Platelet Volume 9.7 fL (7.4-10.4); Platelet Count 172 10x3/uL (130-400); RBC Distribution Width 18.6 % (11.5-14.5); Red Blood Cell (RBC) Count 4.76 mill/uL (4.20-5.40)
[2024-11-10 06:05] LABS: Anion Gap 15 mmol/L (10-20); BUN (Urea Nitrogen) 26 mg/dL (9.8-20.1); Calc. Creatinine Clearance 5 mL/min (70-130); Calcium 9.7 mg/dL (7.8-10.44); Carbon Dioxide 28 mmol/L (23-31); Chloride 97 mmol/L (98-107); Estimated GFR 8; Glucose 70 mg/dL (83-110); Potassium 4.2 mmol/L (3.5-5.1); Sodium 136 mmol/L (136-145)
[2024-11-10] MEDS ORDERED: Heparin 10,000 UNITS/ 10 ML VIAL ONE (10:38)
[2024-11-10] MEDS: Lactulose 20 GM (30 mL) UDCUP PO SCH (13:54)
[2024-11-10] MEDS: Losartan 25 MG TAB PO SCH (13:55)
[2024-11-10] MEDS: Lactulose 20 GM (30 mL) UDCUP PO PRN (21:27)
[2024-11-11 06:12] LABS: #Basophils Less than 0.03 10x3/uL (0.0-0.2); #Eosinophils Less than 0.03 10x3/uL (0.0-0.7); %Basophils 0.1 % (0.0-1.0); %Lymphocytes 13.9 % (21.0-51.0); %Neutrophils 73.3 % (42.0-75.0); Hematocrit 40.8 % (36.0-47.0); Hemoglobin 13.3 g/dL (12.0-16.0); Mean Corpuscular HGB CONC 32.6 g/dL (32.0-36.0); Mean Corpuscular Hemoglobin 27.9 pg (27.0-31.0); Mean Corpuscular Volume 85.5 fL (78.0-98.0); Mean Platelet Volume 9.3 fL (7.4-10.4); Platelet Count 163 10x3/uL (130-400); RBC Distribution Width 18.5 % (11.5-14.5); Red Blood Cell (RBC) Count 4.77 mill/uL (4.20-5.40)
[2024-11-11 07:14] LABS: Anion Gap 15 mmol/L (10-20); BUN (Urea Nitrogen) 19 mg/dL (9.8-20.1); Calc. Creatinine Clearance 7 mL/min (70-130); Calcium 9.5 mg/dL (7.8-10.44); Carbon Dioxide 24 mmol/L (23-31); Chloride 100 mmol/L (98-107); Estimated GFR 10; Glucose 55 mg/dL (83-110); Potassium 4.6 mmol/L (3.5-5.1); Sodium 134 mmol/L (136-145)
[2024-11-12] MEDS: hydrALAZINE 20 MG/ML VIAL SLOW IVP PRN (04:47)
[2024-11-12 10:41] LABS: #Basophils Less than 0.03 10x3/uL (0.0-0.2); #Eosinophils Less than 0.03 10x3/uL (0.0-0.7); %Basophils 0.1 % (0.0-1.0); %Lymphocytes 13.4 % (21.0-51.0); %Monocytes 9.8 % (0.0-10.0); %Neutrophils 76.1 % (42.0-75.0); Hematocrit 40.1 % (36.0-47.0); Hemoglobin 13.3 g/dL (12.0-16.0); Mean Corpuscular HGB CONC 33.2 g/dL (32.0-36.0); Mean Corpuscular Hemoglobin 27.8 pg (27.0-31.0); Mean Corpuscular Volume 83.7 fL (78.0-98.0); Mean Platelet Volume 9.9 fL (7.4-10.4); Platelet Count 176 10x3/uL (130-400); RBC Distribution Width 17.4 % (11.5-14.5); Red Blood Cell (RBC) Count 4.79 mill/uL (4.20-5.40)
[2024-11-12 11:13] LABS: Anion Gap 17 mmol/L (10-20); BUN (Urea Nitrogen) 31 mg/dL (9.8-20.1); Calc. Creatinine Clearance 5 mL/min (70-130); Calcium 9.5 mg/dL (7.8-10.44); Carbon Dioxide 23 mmol/L (23-31); Chloride 96 mmol/L (98-107); Estimated GFR 6; Glucose 100 mg/dL (83-110); Potassium 4.8 mmol/L (3.5-5.1); Sodium 131 mmol/L (136-145)
[2024-11-13 04:07] VITALS: BMI 16.8
[2024-11-13 06:06] LABS: Anion Gap 18 mmol/L (10-20); BUN (Urea Nitrogen) 40 mg/dL (9.8-20.1); Calc. Creatinine Clearance 4 mL/min (70-130); Calcium 9.3 mg/dL (7.8-10.44); Carbon Dioxide 23 mmol/L (23-31); Chloride 98 mmol/L (98-107); Estimated GFR 5; Glucose 71 mg/dL (83-110); Potassium 5.6 mmol/L (3.5-5.1); Sodium 133 mmol/L (136-145)
[2024-11-13] MEDS ORDERED: Heparin 10,000 UNITS/ 10 ML VIAL ONE (08:36)
[2024-11-14 02:20] VITALS: BP 146/70; TEMP 97.9
== END 2024-11-14 02:10 | DRG 689 ==
LOC: 2NO 06:19 → OBSVTOIN 11-09 12:11 → T4-B 11-09 16:13
PROVIDERS: ADMIT Student in an Organized Health Care Education/Training Program; ATTEND Internal Medicine
DX: N39.0 Urinary tract infection, site not specified (principal); G93.41 Metabolic encephalopathy; N18.6 End stage renal disease; I12.0 Hypertensive chronic kidney disease with stage 5 chronic kidney disease or end stage renal disease; E87.1 Hypo-osmolality and hyponatremia; F03.90 Unspecified dementia, unspecified severity, without behavioral disturbance, psychotic disturbance, mood disturbance, and anxiety; D63.1 Anemia in chronic kidney disease; K21.9 Gastro-esophageal reflux disease without esophagitis; H92.02 Otalgia, left ear; H61.22 Impacted cerumen, left ear; E87.5 Hyperkalemia; K59.09 Other constipation; Z99.2 Dependence on renal dialysis; Z88.5 Allergy status to narcotic agent; Z88.0 Allergy status to penicillin; Z88.8 Allergy status to other drugs, medicaments and biological substances; Z90.710 Acquired absence of both cervix and uterus; Z90.49 Acquired absence of other specified parts of digestive tract; Z98.890 Other specified postprocedural states
CPT/HCPCS: 36415; 80048; 80053; 83735; 85025; 87633; 90935; G0257; G0378; J0360; J1644; J2185

== ENCOUNTER 2024-11-22 08:59 | Emergency (ER) | payer MEDICARE, OTHER ==
[2024-11-22] MEDS ORDERED: Acetaminophen 500 MG TAB ONE (10:35)
[2024-11-22 10:47] LABS: Bilirubin Negative (Negative); Blood, Urine Trace (Negative); CAUTI Indications for Culture Dysuria,urgency,freq; Clarity Turbid (Clear); Glucose, Urine (Dipstick) Normal (Negative); Ketone, Urine Negative (Negative); Leukocyte 500 Leu/uL (Negative); Nitrite Negative (Negative); Protein, Urine (Dipstick) 300 mg/dL (Neg-Trace); Specific Gravity, Urine 1.009 (1.002-1.036); Squamous Epithelial None Seen HPF (0-3); Urobilinogen Normal mg/dL (Less than 2); WBC/HPF Greater than 50 HPF (0-3)
[2024-11-22 10:57] LABS: Bacteria/HPF 4+ HPF (None Seen)
[2024-11-22 10:58] LABS: Urine Culture Reflex Yes Yes
[2024-11-22 12:07] LABS: #Basophils Less than 0.03 10x3/uL (0.0-0.2); #Eosinophils Less than 0.03 10x3/uL (0.0-0.7); %Basophils 0.1 % (0.0-1.0); %Lymphocytes 11.5 % (21.0-51.0); %Monocytes 8.2 % (0.0-10.0); %Neutrophils 79.6 % (42.0-75.0); Hematocrit 35.3 % (36.0-47.0); Hemoglobin 11.9 g/dL (12.0-16.0); Mean Corpuscular HGB CONC 33.7 g/dL (32.0-36.0); Mean Corpuscular Hemoglobin 27.9 pg (27.0-31.0); Mean Corpuscular Volume 82.9 fL (78.0-98.0); Mean Platelet Volume 8.9 fL (7.4-10.4); Platelet Count 202 10x3/uL (130-400); RBC Distribution Width 15.3 % (11.5-14.5); Red Blood Cell (RBC) Count 4.26 mill/uL (4.20-5.40)
[2024-11-22 12:27] LABS: ALT (SGPT) 9 U/L (Less than 34); AST (SGOT) 31 U/L (11-34); Albumin 2.6 g/dL (3.1-4.5); Alkaline Phosphatase 112 U/L (40-110); Anion Gap 20 mmol/L (10-20); BUN (Urea Nitrogen) 32 mg/dL (9.8-20.1); Bilirubin, Total 0.5 mg/dL (0.3-1.2); Calc. Creatinine Clearance 0 mL/min (70-130); Calcium 8.5 mg/dL (7.8-10.44); Carbon Dioxide 23 mmol/L (23-31); Chloride 92 mmol/L (98-107); Estimated GFR 6; Globulin 4.2 g/dL (2.4-3.5); Glucose 39 mg/dL (83-110); Lipase 47 U/L (8-78); Potassium 4.3 mmol/L (3.5-5.1); Protein, Total 6.8 g/dL (5.8-8.1); Sodium 131 mmol/L (136-145)
[2024-11-22] MEDS ORDERED: Dextrose 10% in Water 250 ML ONE (12:31)
[2024-11-22] MEDS ORDERED: Iopamidol 370 76% 100 ML VIAL ONE (13:59)
[2024-11-22] MEDS ORDERED: Sodium Chloride 0.9% 100 ML ONE (14:25)
[2024-11-22] MEDS ORDERED: cefTRIAXone (ROCEPHIN) 2 GM VIAL ONE (14:25)
[2024-11-22] MEDS ORDERED: cefTRIAXone (ROCEPHIN) 1 GM VIAL ONE (14:27)
== END 2024-11-22 18:04 | disposition home or self-care (01) ==
LOC: ERS 08:59
DX: N39.0 Urinary tract infection, site not specified (principal); E87.1 Hypo-osmolality and hyponatremia; D63.1 Anemia in chronic kidney disease; K21.9 Gastro-esophageal reflux disease without esophagitis; F03.90 Unspecified dementia, unspecified severity, without behavioral disturbance, psychotic disturbance, mood disturbance, and anxiety; M10.9 Gout, unspecified; K58.9 Irritable bowel syndrome, unspecified; I12.9 Hypertensive chronic kidney disease with stage 1 through stage 4 chronic kidney disease, or unspecified chronic kidney disease; N18.6 End stage renal disease; G62.9 Polyneuropathy, unspecified; Z79.899 Other long term (current) drug therapy
CPT/HCPCS: 71045; 73564; 74177; 80053; 81001; 82962; 83690; 85025; 87077; 87086; 87186; 87428; 93005; J0696; Q9967; 36416; 51701; 96365

== ENCOUNTER 2025-01-26 23:52 | Inpatient (IN) | payer MEDICARE, MEDICAID ==
[2025-01-27 02:33] VITALS: BMI 18.7
[2025-01-27] MEDS ORDERED: Ondansetron PF 4 MG/2 ML Vial IVP PRN (02:33)
[2025-01-27] MEDS ORDERED: Ondansetron ODT 4 MG TAB PO PRN (02:33)
[2025-01-27] MEDS ORDERED: Vancomycin Hemodialysis Sliding Scale FS SCH (03:15)
[2025-01-27] MEDS: Melatonin 3 MG TAB PO PRN (03:21)
[2025-01-27] MEDS: cefTRIAXone\\ROCEPHIN 1 GM in Sodium Chloride 0.9% 100 ML IVPB SCH (03:22)
[2025-01-27] MEDS: Sodium Chloride 0.9% 100 ML ONE (03:23)
[2025-01-27 04:21] LABS: #Basophils Less than 0.03 10x3/uL (0.0-0.2); #Eosinophils Less than 0.03 10x3/uL (0.0-0.7); %Basophils 0.2 % (0.0-1.0); %Lymphocytes 19.3 % (21.0-51.0); %Neutrophils 69.9 % (42.0-75.0); Hematocrit 31.9 % (36.0-47.0); Hemoglobin 10.2 g/dL (12.0-16.0); Mean Corpuscular Volume 84.4 fL (78.0-98.0); Mean Platelet Volume 9.4 fL (7.4-10.4); Platelet Count 160 10x3/uL (130-400); RBC Distribution Width 18.9 % (11.5-14.5); Red Blood Cell (RBC) Count 3.78 mill/uL (4.20-5.40)
[2025-01-27 04:35] LABS: ALT (SGPT) 8 U/L (Less than 34); AST (SGOT) 18 U/L (11-34); Albumin 3.1 g/dL (3.1-4.5); Alkaline Phosphatase 78 U/L (40-110); Anion Gap 16 mmol/L (10-20); BUN (Urea Nitrogen) 19 mg/dL (9.8-20.1); Bilirubin, Total 0.4 mg/dL (0.3-1.2); Calc. Creatinine Clearance 10 mL/min (70-130); Calcium 9.8 mg/dL (7.8-10.44); Carbon Dioxide 26 mmol/L (23-31); Chloride 101 mmol/L (98-107); Estimated GFR 15; Globulin 3.3 g/dL (2.4-3.5); Glucose 78 mg/dL (83-110); Potassium 3.1 mmol/L (3.5-5.1); Protein, Total 6.4 g/dL (5.8-8.1); Sodium 140 mmol/L (136-145)
[2025-01-27 04:36] LABS: Lactic Acid 0.65 mmol/L (0.50-2.20)
[2025-01-27] MEDS: Potassium Chloride 20 MEQ TAB PO SCH (09:09)
[2025-01-27] MEDS: Heparin 5,000 UNITS/ML VIAL SC SCH (09:10)
[2025-01-27 12:21] LABS: Bacteria/HPF 2+ HPF (None Seen); Bilirubin Negative (Negative); Blood, Urine Trace (Negative); CAUTI Indications for Culture Fever or rigors; Clarity Turbid (Clear); Glucose, Urine (Dipstick) 50 mg/dL (Negative); Ketone, Urine Negative (Negative); Leukocyte 500 Leu/uL (Negative); Nitrite Negative (Negative); Protein, Urine (Dipstick) 100 mg/dL (Neg-Trace); Specific Gravity, Urine 1.001 (1.002-1.036); Urobilinogen Normal mg/dL (Less than 2); WBC/HPF Greater than 50 HPF (0-3)
[2025-01-27] MEDS: hydrALAZINE 25 MG TAB PO SCH (13:34)
[2025-01-27] MEDS: tiZANidine HCl 4 MG TAB PO SCH ×2 (13:35→20:15)
[2025-01-27] MEDS: busPIRone HCl 5 MG TAB PO SCH (13:36)
[2025-01-27] MEDS: Citalopram 20 MG TAB PO SCH (20:15)
[2025-01-27] MEDS: Latanoprost 0.005% Ophth Soln 2.5 ml Bottle EA EYE SCH (20:16)
[2025-01-28] MEDS: hydrALAZINE 20 MG/ML VIAL SLOW IVP SCH (01:50)
[2025-01-28 07:11] LABS: #Basophils Less than 0.03 10x3/uL (0.0-0.2); #Eosinophils Less than 0.03 10x3/uL (0.0-0.7); %Lymphocytes 22.9 % (21.0-51.0); %Monocytes 10.1 % (0.0-10.0); %Neutrophils 66.4 % (42.0-75.0); Hematocrit 31.9 % (36.0-47.0); Hemoglobin 10.2 g/dL (12.0-16.0); Mean Corpuscular Hemoglobin 26.8 pg (27.0-31.0); Mean Corpuscular Volume 83.7 fL (78.0-98.0); Mean Platelet Volume 9.8 fL (7.4-10.4); Platelet Count 189 10x3/uL (130-400); RBC Distribution Width 19.2 % (11.5-14.5); Red Blood Cell (RBC) Count 3.81 mill/uL (4.20-5.40)
[2025-01-28 07:33] LABS: Anion Gap 15 mmol/L (10-20); BUN (Urea Nitrogen) 30 mg/dL (9.8-20.1); Calc. Creatinine Clearance 6 mL/min (70-130); Calcium 10.3 mg/dL (7.8-10.44); Carbon Dioxide 25 mmol/L (23-31); Chloride 102 mmol/L (98-107); Estimated GFR 8; Glucose 71 mg/dL (83-110); Potassium 4.3 mmol/L (3.5-5.1); Sodium 138 mmol/L (136-145)
[2025-01-28] MEDS: Allopurinol 100 MG TAB PO SCH (08:08)
[2025-01-28] MEDS: Folic Acid/Vit B Comp W-C PO SCH (08:08)
[2025-01-28] MEDS: Amlodipine 10 MG TAB PO SCH (08:08)
[2025-01-28 14:46] VITALS: BMI 18.7
[2025-01-28] MEDS: Lactulose 20 GM (30 mL) UDCUP PO PRN (22:04)
[2025-01-28] MEDS: traMADol HCl 50 MG TAB PO PRN (22:09)
[2025-01-29 05:31] LABS: #Basophils Less than 0.03 10x3/uL (0.0-0.2); #Eosinophils Less than 0.03 10x3/uL (0.0-0.7); %Basophils 0.1 % (0.0-1.0); %Lymphocytes 20.8 % (21.0-51.0); %Monocytes 9.2 % (0.0-10.0); %Neutrophils 69.3 % (42.0-75.0); Hematocrit 29.7 % (36.0-47.0); Hemoglobin 9.7 g/dL (12.0-16.0); Mean Corpuscular HGB CONC 32.7 g/dL (32.0-36.0); Mean Corpuscular Hemoglobin 27.2 pg (27.0-31.0); Mean Corpuscular Volume 83.2 fL (78.0-98.0); Mean Platelet Volume 9.6 fL (7.4-10.4); Platelet Count 183 10x3/uL (130-400); RBC Distribution Width 18.9 % (11.5-14.5); Red Blood Cell (RBC) Count 3.57 mill/uL (4.20-5.40)
[2025-01-29 06:00] LABS: Anion Gap 17 mmol/L (10-20); BUN (Urea Nitrogen) 45 mg/dL (9.8-20.1); Calc. Creatinine Clearance 5 mL/min (70-130); Calcium 10.4 mg/dL (7.8-10.44); Carbon Dioxide 22 mmol/L (23-31); Chloride 102 mmol/L (98-107); Estimated GFR 7; Glucose 70 mg/dL (83-110); Potassium 5.6 mmol/L (3.5-5.1); Sodium 135 mmol/L (136-145)
[2025-01-29] MEDS ORDERED: Heparin 10,000 UNITS/ 10 ML VIAL ONE (09:40)
[2025-01-29] MEDS: diphenhydrAMINE 50 MG/ML VIAL IVP SCH (11:53)
[2025-01-29] MEDS: Epoetin (ESRD) 10,000 UNITS/ML VIAL IVP SCH (11:59)
[2025-01-29] MEDS ORDERED: EPOETIN ALFA-EPBX (ESRD) 10,000 UNITS/ML VIAL IVP SCH (12:00)
[2025-01-29] MEDS: diphenhydrAMINE 25 MG CAP PO SCH (20:49)
[2025-01-30 05:55] LABS: Anion Gap 14 mmol/L (10-20); BUN (Urea Nitrogen) 19 mg/dL (9.8-20.1); Calc. Creatinine Clearance 8 mL/min (70-130); Calcium 10.2 mg/dL (7.8-10.44); Carbon Dioxide 26 mmol/L (23-31); Chloride 100 mmol/L (98-107); Estimated GFR 13; Glucose 74 mg/dL (83-110); Potassium 4.2 mmol/L (3.5-5.1); Sodium 136 mmol/L (136-145)
[2025-01-30] MEDS: hydrALAZINE 25 MG TAB PO SCH (09:00)
[2025-01-30] MEDS ORDERED: Meropenem 500 MG in Sodium Chloride 0.9% 100 ML IVPB SCH (14:00)
[2025-01-30] MEDS: Meropenem 500 MG in Sodium Chloride 0.9% 100 ML IVPB SCH (15:51)
[2025-01-31 06:12] LABS: Anion Gap 14 mmol/L (10-20); BUN (Urea Nitrogen) 36 mg/dL (9.8-20.1); Calc. Creatinine Clearance 6 mL/min (70-130); Calcium 10.2 mg/dL (7.8-10.44); Carbon Dioxide 25 mmol/L (23-31); Chloride 99 mmol/L (98-107); Estimated GFR 9; Glucose 76 mg/dL (83-110); Potassium 4.9 mmol/L (3.5-5.1); Sodium 133 mmol/L (136-145)
[2025-01-31] MEDS ORDERED: Heparin 10,000 UNITS/ 10 ML VIAL ONE (10:42)
[2025-01-31] MEDS: Acetaminophen 325 MG TAB PO PRN (20:19)
[2025-02-01 08:01] LABS: Anion Gap 14 mmol/L (10-20); BUN (Urea Nitrogen) 20 mg/dL (9.8-20.1); Calc. Creatinine Clearance 9 mL/min (70-130); Calcium 9.9 mg/dL (7.8-10.44); Carbon Dioxide 27 mmol/L (23-31); Chloride 97 mmol/L (98-107); Estimated GFR 14; Glucose 64 mg/dL (83-110); Potassium 4.7 mmol/L (3.5-5.1); Sodium 133 mmol/L (136-145)
[2025-02-01 11:38] VITALS: BP 126/54; TEMP 98.2
== END 2025-02-01 17:00 | DRG 689 ==
LOC: T4-A 01-27 02:20
PROVIDERS: ADMIT Internal Medicine; ATTEND Internal Medicine
DX: N39.0 Urinary tract infection, site not specified (principal); N18.6 End stage renal disease; I12.0 Hypertensive chronic kidney disease with stage 5 chronic kidney disease or end stage renal disease; R64 Cachexia; Z68.1 Body mass index [BMI] 19.9 or less, adult; E87.6 Hypokalemia; Z99.2 Dependence on renal dialysis; F03.90 Unspecified dementia, unspecified severity, without behavioral disturbance, psychotic disturbance, mood disturbance, and anxiety; D63.1 Anemia in chronic kidney disease; K21.9 Gastro-esophageal reflux disease without esophagitis; Z90.710 Acquired absence of both cervix and uterus; Z90.49 Acquired absence of other specified parts of digestive tract; Z88.0 Allergy status to penicillin; Z88.8 Allergy status to other drugs, medicaments and biological substances; Z79.01 Long term (current) use of anticoagulants; Z79.899 Other long term (current) drug therapy; F39 Unspecified mood [affective] disorder; E87.5 Hyperkalemia
CPT/HCPCS: 36415; 80048; 80053; 81001; 83605; 85025; 87077; 87086; 87186; 90935; G0257; J0360; J0696; J1200; J1644; J2185; Q4081

== ENCOUNTER 2025-09-16 17:38 | Emergency (ER) | payer MEDICARE ==
[2025-09-16] MEDS ORDERED: Ondansetron PF 4 MG/2 ML Vial ONE (19:04)
[2025-09-16 19:36] LABS: #Basophils Less than 0.03 10x3/uL (0.0-0.2); #Eosinophils Less than 0.03 10x3/uL (0.0-0.7); #Monocytes 0.67 10x3/uL (0.11-0.59); #Neutrophils 6.40 10x3/uL (1.40-6.50); %Basophils 0.1 % (0.0-1.0); %Eosinophils 0.0 % (0.0-10.0); %Lymphocytes 13.2 % (21.0-51.0); %Monocytes 8.2 % (0.0-10.0); %Neutrophils 78.0 % (42.0-75.0); Hematocrit 31.9 % (36.0-47.0); Hemoglobin 10.4 g/dL (12.0-16.0); Mean Corpuscular Hemoglobin 26.0 pg (27.0-31.0); Mean Corpuscular Volume 79.8 fL (78.0-98.0); Platelet Count 149 10x3/uL (130-400); Red Blood Cell (RBC) Count 4.00 mill/uL (4.20-5.40); White Blood Cell (WBC) Count 8.20 10x3/uL (4.8-10.8)
[2025-09-16 19:55] LABS: ALT (SGPT) Less than 7 U/L (Less than 34); AST (SGOT) 23 U/L (11-34); Albumin 2.9 g/dL (3.1-4.5); Alkaline Phosphatase 59 U/L (40-110); Anion Gap 16 mmol/L (10-20); BUN (Urea Nitrogen) 38 mg/dL (9.8-20.1); Bilirubin, Total 0.4 mg/dL (0.3-1.2); Calc. Creatinine Clearance 0 mL/min (70-130); Calcium 8.8 mg/dL (7.8-10.44); Carbon Dioxide 26 mmol/L (23-31); Chloride 100 mmol/L (98-107); Globulin 4.3 g/dL (2.4-3.5); Glucose 88 mg/dL (83-110); Lipase 45 U/L (8-78); Potassium 4.3 mmol/L (3.5-5.1); Sodium 138 mmol/L (136-145)
== END 2025-09-17 00:21 ==
LOC: ERS 17:38
DX: R10.32 Left lower quadrant pain (principal); I12.0 Hypertensive chronic kidney disease with stage 5 chronic kidney disease or end stage renal disease; N18.6 End stage renal disease; Z99.2 Dependence on renal dialysis
CPT/HCPCS: 74176; 80053; 83690; 85025; J2272; J2405; 96374; 96375